=== PATIENT | male | born 1975 | race Caucasian/White ===

== ENCOUNTER 2019-03-15 07:04 | Outpatient (CLI) | payer SELFPAY ==
[2019-03-15 08:39] LABS: Anion Gap 7.2 mmol/L (3-11); BUN 11 mg/dL (7-18); CO2 27.8 mmol/L (21.0-32.0); CREATININE 0.94 mg/dL (0.70-1.30); Calcium 8.7 mg/dL (8.5-10.1); Chloride 106 mmol/L (98-107); Glucose 103 mg/dL (70-100); Potassium 4.7 mmol/L (3.5-5.1); Sodium 141 mmol/L (136-145)
== END 2019-03-15 07:24 ==
PROVIDERS: PCP Family Medicine; Visit Provider Family Medicine
DX: R73.01 Impaired fasting glucose (principal)
CPT/HCPCS: 36415; 80048; 83036

== ENCOUNTER 2021-01-27 17:26 | Outpatient (REF) | payer OTHER, SELFPAY ==
[2021-01-27 20:24] LABS: Hemoglobin A1C 5.9 % (<5.7)
[2021-01-29 10:33] LABS: Hepatitis C Ab w Rflx HCV PCR Negative (Negative)
[2021-01-29 10:42] LABS: HIV-1/2 Ag & Ab Screen Negative (Negative)
== END 2021-01-27 17:27 | disposition home or self-care (01) ==
LOC: NCHCN 17:26
PROVIDERS: PCP Family Medicine; Visit Provider Family Medicine
DX: R73.03 Prediabetes (principal); E66.9 Obesity, unspecified; Z00.00 Encounter for general adult medical examination without abnormal findings; Z72.0 Tobacco use; Z11.4 Encounter for screening for human immunodeficiency virus [HIV]; Z11.59 Encounter for screening for other viral diseases
CPT/HCPCS: 86803; 87389; 83036

== ENCOUNTER 2022-12-19 18:06 | Outpatient (REF) | payer OTHER, SELFPAY ==
[2022-12-19 18:39] LABS: Calculated LDL 105 mg/dL (<100); Cholesterol 198 mg/dL (<200); HDL Cholesterol 49 mg/dL (40-60); Triglyceride 223 mg/dL (<150)
== END 2022-12-19 18:07 | disposition home or self-care (01) ==
LOC: NCHCN 18:06
PROVIDERS: PCP Family Medicine; Visit Provider Family Medicine
DX: Z00.00 Encounter for general adult medical examination without abnormal findings (principal); R03.0 Elevated blood-pressure reading, without diagnosis of hypertension; Z13.220 Encounter for screening for lipoid disorders
CPT/HCPCS: 80061

== ENCOUNTER 2023-12-22 18:57 | Outpatient (REF) | payer OTHER, SELFPAY ==
--- OUTSIDE RECORDS SUMMARY | 2023-12-22 19:00 | XMS_ITS | Encounter Summary ---
[place] [address] Care Team Providers Care Cardiologist Name Role Phone Vira Hilton MD Primary Care Provider [phone] Encounter Details Date Type Department Care Team (Latest Contact Info) Description 06/22/2023 Travel Social History Tobacco Use Types Packs/Day Years Used Date Smoking Tobacco: Never Passive Smoke Exposure: Past Smokeless Tobacco: Former Comments:Chewing tobacco for the past 25-30 years. Chews on both sides Alcohol Use Standard Drinks/Week Comments Yes 4 (1 standard drink = 0.6 oz pur e alcohol) [facility] Inpatient Questions Answer Date Recorded Does Anyone Try to Keep You From Having Contact with Others or Doing Things Outside Your Home? no 04/10/2023 Feels Threatened by Someone no 03/31 Feels Unsafe at Home or Work/School no 04/10/2023 Physical Signs of Abuse Present no 04/10/2023 Sex and Gender Information Value Date Recorded Sex Assigned at Not on file Gender Identity Not on file Sexual Orientation Not on file documented as of this encounter Plan of Treatment Upcoming Encounters Date Type Department Care Team (Late st Contact Info) Description 03/07/2024 3:00 PM EST Office Visit [place] [phone] Nimesh Aquino MD [facility] [place] [address] documented as of this encounter Visit Diagnoses Not on filedocumented in this encounter Care Teams Cardiologist Relationship Specialty Start Date End Date Vira Hilton MD [address] [place] [address] PCP - General Family Medicine 01/10/23 documented as of this encounter
--- OUTSIDE RECORDS SUMMARY | 2023-12-22 19:00 | XMS_ITS | Encounter Summary ---
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 Vira Hilton MD [facility] [address] [facility] [address] [place] [address] [facility] [address] [place] [phone] Referral ID Status Reason Start Date Expiration Date Visits Requested Visits Authorized [id number] Authorized Consult, Test & Treat PCP Updated and/or Approved 03/02/2023 02/22/2024 6 6 Encounter Details Date Type Department Care Team (Latest Contact Info) Description 01/06/2023 Transcribe Orders eDH Incoming Referrals [phone] Dean Medrano DDS [address] [place] [address] 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) Social History Tobacco Use Types Packs/Day Years Used Date Smoking Tobacco: Never Assessed Sex and Gender Information Value Date Recorded Sex Assigned at Not on file Gender Identity Not on file Sexual Orientation Not on file documented as of this encounter Plan of Treatment Upcoming Encounters Date Type Department Care Team (Late st Contact Info) Description 03/07/2024 3:00 PM EST Office Visit [place] [address] Nimesh Aquino MD [facility] [place] [address] Scheduled Referrals Name Type Priority Associated Diagnoses Order Schedule Referral to Maxillofacial Surgery Outpatient Referral Routine 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
--- OUTSIDE RECORDS SUMMARY | 2023-12-22 19:00 | XMS_ITS | Encounter Summary ---
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 Vira Hilton MD [address] [place] [address] [address] [facility] [facility] [address] [place] [phone] Referral ID Status Reason Start Date Expiration Date Visits Requested Visits Authorized [id number] Authorized Consult, Test & Treat PCP Updated and/or Approved 03/02/2023 02/22/2024 6 6 Encounter Details Date Type Department Care Team (Late st Contact Info) Description 01/24/2023 9:30 AM EDT Office Visit [place] [address] Sg Fitzgerald PA [facility] [place] [address] Cyst of mandible Social History Tobacco Use Types Packs/Day Years Used Date Smoking Tobacco: Never Smokeless Tobacco: Former Tobacco Cessation:Counseling Given: Not Answered Comments:Chewing tobacco for the past 25-30 years. Chews on both sides Sex and Gender Information Value Date Recorded Sex Assigned at Not on file Gender Identity Not on file Sexual Orientation Not on file documented as of this encounter Last Filed Vital Signs Vital Sign Reading Time Taken Comments Blood Pressure - - Pulse - - Temperature - - Respiratory Rate - - Oxygen Saturation - - Inhaled Oxygen Concentration - - Weight 86.2 kg (190 lb) 01/24/2023 9:26 AM EDT Height 175.3 cm (5' 9) 01/24/2023 9:26 AM EDT Body Mass Index 28.06 01/24/2023 9:26 AM EDT documented in this encounter Progress Notes * Sg Fitzgerald PA - 01/24/2023 9:30 AM EDT Images from the original note were not included. ORAL-MAXILLOFACIAL SURGERY OUTPATIENT CLINIC INITIAL CONSULTATION VISIT Name: Alhaji Allen Age/Sex: 47 y.o. male History of Present Illness Alhaji Allen is a 47 y.o. male referred by Dean Medrano for consultation regarding right mandible radiolucency. A complete history of the Alhaji 's symptoms and physical signs were reviewed with attention to initial findings and progression, pain, bleeding, swelling, lumps, bumps, drainage, dysphagia, odynophagia, paresthesia, dysarthria and systemic effects. Pertinent notations from today's history: Denies oral pain, swelling or tingling Sees dentist regularly, noted on routine panorex Occasional cold sensitivity Unaware of any trauma on that side No daily medications or major past medical problems Prior knee surgery around 25 years ago without complications Accompanied by significant other Past Medical/Social/Dental History No past medical history on file. There is no problem list on file for this patient. Social History Tobacco Use Smoking status: Not on file Smokeless tobacco: Not on file Substance Use Topics Alcohol use: Not on file No current outpatient medications on file. Not on File Review of Systems Pertinent positive and negative findings discussed above. ROS with attention to cardiac, pulmonary,hepatic, renal, neurologic, lymphatic, gastroenterologic, constitutional, hematologic, and dermatologic systems reviewed with relevant findings as noted. Physical Exam Vitals: There were no vitals taken for this visit. There is no height or weight on file to calculate BMI. Extraoral exam conducted including facial symmetry, sensory and motor function, alertness and appropriateness to questions and commands, range of jaw motion, TMJ function and skeletal architecture. Neck exam conducted with attention to normal musculature, vasculature and potential adenopathy. Intraoral exam including evaluation of tongue surface and consistency, floor of mouth, buccal and labial mucosa as well as maxillary and mandibular vestibules, hard and soft palate including soft palate elevation and oropharynx as well as dentition, dental arches, occlusion and salivary flow. General: No acute distress, pleasant Focused oral exam: No trismus No oral lesions visualized No appreciable bony expansion No facial edema or erythema Neuro: a/o x3 Neck: soft, supple Psych: appropriate, responds to questions normally Imaging Panorex demonstrates sizable right mandible radiolucency emanating from deeply impacted #[address] as well. Septated lucency emanating from the cementoenamel junction of this tooth.Thinning of lingual cortex but buccal cortex appears appropriate and robust Personally reviewed and evaluated ASSESSMENT & RECOMMENDATIONS Assessment: right mandible radiolucency Differential includes dentigerous cyst, possibly odontogenic keratocyst, less likely ameloblastoma.Discussed that biopsy would aid in determining this and guide the most appropriate intervention. Ifkeratocyst may require cryotherapy and removal of #31 but if dentigerous cyst may be more amenable to excision. Ameloblastoma would be more involved. Discussed potential approaches and options for initial biopsy in office vs. OR. Recommendations/plan: -Plan for biopsy under local anesthesia -Amoxicillin course starting 2 days prior -Plan for probable surgical intervention and possible drain placement. Reviewed potential risks including fracture, nerve injury, bleeding, infection, chance for recurrence depending on underlying pathology. He does think he could adhere to a strict liquid diet perhaps in lieu of MMF. Reviewed imaging with Dr. Aquino. We appreciate the opportunity to be involved in Mr. Allen's care. EDDIE Paiz-C - Oral-Maxillofacial Surgery 01/20/2023 10:05 AM documented in this encounter Plan of Treatment Upcoming Encounters Date Type Department Care Team (Late st Contact Info) Description 03/07/2024 3:00 PM EST Office Visit [place] [address] Nimesh Aquino MD [facility] [place] [address] documented as of this encounter Visit Diagnoses Diagnosis Cyst of mandible Other cysts of jaws documented in this encounter Care Teams Bark Fitter Relationship Specialty Start Date End Date Vira Hilton MD [address] [facility] [address] [place] [address] PCP - General Family Medicine 01/10/23 documented as of this encounter
--- OUTSIDE RECORDS SUMMARY | 2023-12-22 19:00 | XMS_ITS | Encounter Summary ---
[place] [address] Care Team Providers Care Brass And Wind Instrument Repairer Name Role Phone Vira Hilton MD Primary Care Provider [phone] Encounter Details Date Type Department Care Team (Latest Contact Info) Description 01/17/2023 Travel Social History Tobacco Use Types Packs/Day [...] PM EST Office Visit [place] [address] Nimesh Aquino MD [facility] [place] [address] documented as of this encounter Visit Diagnoses Not on filedocumented in this encounter Care Teams Brass And Wind Instrument Repairer Relationship Specialty Start Date End Date Vira Hilton MD [address] [place], [place] [address] [place] [address] PCP - General Family Medicine 01/10/23 documented as of this encounter
--- OUTSIDE RECORDS SUMMARY | 2023-12-22 19:00 | XMS_ITS | Encounter Summary ---
Author Organization [facility] Address [address] [place] [address] Care Team Providers Care Tobacco Prevention Health Educator Name Role Phone Unavailable Primary Care Provider Unavailabl e Encounter Details Date Type Department Care Team (Late st Contact Info) Description 01/28/2021 Lab Requisition [facility] Pathology & Laboratory Medicine - [facility] [address] [id number] Outr Resulting Lab, Provider Social History Tobacco Use Types Packs/Day Years Used Date Smoking Tobacco: Never Assessed Sex and Gender Information Value Date Recorded Sex Assigned at Not on file Gender Identity Not on file Sexual Orientation Not on file documented as of this encounter Plan of Treatment Not on file documented as of this encounter Procedures Procedure Name Priority Date/Time Associated Diagnosis Comments HEPATITIS C AB W REFLEX TO HCV RNA BY PCR Routine 01/27/2021 17:02 EDT documented in this encounter Results * HEPATITIS C AB W REFLEX TO HCV RNA BY PCR (01/27/2021 17:02 EDT) Hep C Antibody Negative Negative 01/29/2021 10:28 EDT [facility] Blood VENOUS BLOOD / Unknown 01/27/2021 17:02 EDT 01/28/2021 16:13 EDT Provider Outr Resulting Lab CHEMISTRY & BLOOD GAS ORDERABLES [facility] [address] [place] [address] documented in this encounter Visit Diagnoses Not on filedocumented in this encounter
--- OUTSIDE RECORDS SUMMARY | 2023-12-22 19:00 | XMS_ITS | Referral Summary ---
Author Organization [facility] Address [address] [place] [address] Care Team Providers Care Slitting And Shipping Supervisor Name Role Phone Unavailable Primary Care Provider Unavailabl e Social History Tobacco Use Types Packs/Day Years Used Date Smoking Tobacco: Never Assessed Sex and Gender Information Value Date Recorded Sex Assigned at Not on file Gender Identity Not on file Sexual Orientation Not on file Plan of Treatment Not on file Procedures Procedure Name Priority Date/Time Associated Diagnosis Comments HEPATITIS C AB W REFLEX TO HCV RNA BY PCR Routine 01/27/2021 17:02 EDT from Last 3 Months or Most Recently Relevant to Health Maintenance Results * HEPATITIS C AB W REFLEX TO HCV RNA BY PCR (01/27/2021 17:02 EDT) Hep C Antibody Negative Negative 01/29/2021 10:28 EDT [facility] Blood VENOUS BLOOD / Unknown 01/27/2021 17:02 EDT 01/28/2021 16:13 EDT Provider Outr Resulting Lab CHEMISTRY & BLOOD GAS ORDERABLES [facility] [address] [place] [address] from Last 3 Months or Most Recently Relevant to Health Maintenance
--- OUTSIDE RECORDS SUMMARY | 2023-12-22 19:00 | XMS_ITS | Encounter Summary ---
[place] [address] Care Team Providers Care Directional Survey Drafter Name Role Phone Vira Hilton MD Primary Care Provider [phone] Encounter Details Date Type Department Care Team (Latest Contact Info) Description 05/11/2023 Travel Social History Tobacco Use Types Packs/Day Years Used Date Smoking Tobacco: Never Passive Smoke Exposure: Past Smokeless Tobacco: Former Comments:Chewing tobacco for the past 25-30 years. Chews on both sides Alcohol Use Standard Drinks/Week Comments Yes 4 (1 standard drink = 0.6 oz pur e alcohol) [facility] Inpatient Questions Answer Date Recorded Does Anyone [...] PM EST Office [place] [phone] Nimesh Aquino MD [facility] [place] [address] documented as of this encounter Visit Diagnoses Not on filedocumented in this encounter Care Teams Directional Survey Drafter Relationship Specialty Start Date End Date Vira Hilton MD [address] [place] [address] PCP - General Family Medicine 01/10/23 documented as of this encounter
--- OUTSIDE RECORDS SUMMARY | 2023-12-22 19:00 | XMS_ITS | Encounter Summary ---
[place] [address] Care Team Providers Care Supply Tech Name Role Phone Vira Hilton MD Primary Care Provider [phone] Encounter Details Date Type Department Care Team (Latest Contact Info) Description 01/24/2023 Travel Social History Tobacco Use Types Packs/Day Years Used Date Smoking Tobacco: Never Smokeless Tobacco: Former Comments:Chewing tobacco for the [...] PM EST Office Visit [place] [address] Nimesh Aquino MD [facility] [place] [address] documented as of this encounter Visit Diagnoses Not on filedocumented in this encounter Care Teams Supply Tech Relationship Specialty Start Date End Date Vira Hilton MD [employer] [address] [place] [address] PCP - General Family Medicine 01/10/23 documented as of this encounter
--- OUTSIDE RECORDS SUMMARY | 2023-12-22 19:00 | XMS_ITS | Encounter Summary ---
[place] [address] Care Team Providers Care Country Director Name Role Phone Vira Hilton MD Primary Care Provider [phone] Encounter Details Date Type Department Care Team (Late st Contact Info) Description 04/28/2023 Telephone [place] [address] Nova Hunter RN Social History Tobacco Use Types Packs/Day Years Used Date Smoking Tobacco: Never Passive Smoke Exposure: Past Smokeless Tobacco: Former Comments:Chewing tobacco for the past 25-30 years. Chews on both sides Alcohol Use Standard Drinks/Week Comments Yes 4 (1 standard drink = 0.6 oz pur e alcohol) [facility] Inpatient Questions Answer Date Recorded Does [...] on file documented as of this encounter Miscellaneous Notes * Telephone Encounter - Nova Hunter RN - 04/28/2023 4:28 PM EST HIRA left on nurse triage line by patient stating he has a funny taste coming from the area. Dr. Aquino performed surgery on 04/10 for a right mandibular cyst. Attempt to call patient back to gather more details. VM left on identified machine. Call back number left or oral surgery clinic, as wellas provider telemetry monitor. documented in this encounter Plan of Treatment Upcoming Encounters Date Type Department Care Team (Late st Contact Info) Description 03/07/2024 3:00 PM EST Office Visit [place] [address] Nimesh Aquino MD [facility] [place] [address] documented as of this encounter Visit Diagnoses Not on filedocumented in this encounter Care Teams Country Director Relationship Specialty Start Date End Date Vira Hilton MD [address] [place] [address] PCP - General Family Medicine 01/10/23 documented as of this encounter
--- OUTSIDE RECORDS SUMMARY | 2023-12-22 19:00 | XMS_ITS | Continuity of Care Document ---
Author Organization [facility] Address [address] [place] [address] Assessment No assessment recorded. Plan of Treatment Reminders Order Date Submit Date Provider Last Modified By Organization Details Last Modified Time Details Appointments Annual Wellness Exam 40 2023 03:00P M Not available Not available Not available Nurse Visit 20 2023 08:30A M Not available Not available Not available Annual Wellness Exam 30 2024 08:20A M Not available Not available Not available Lab CMP, serum or plasma 2023 024 [facility] (Registration ), [address] [place] [address] , [place], [address], 12/22/2023 16:17:34 HbA1c (hemoglob in A1c), blood 2023 024 [facility] (Registration ), [address] [place] [address] [place], [address], 12/22/2023 16:17:34 fecal occult blood, immunoass ay, stool 2023 024 [facility], [address], [place], [address], 12/22/2023 16:03:13 Referral None recorded. Procedures colonosco py screening (PROC) - He says that he called to schedule, and was told he would get a call back but never did... 2023 024 [facility], [address] [facility] , [address], [place], [address], 12/22/2023 16:10:35 Surgeries None recorded. Imaging None recorded. Medication Orders None recorded. Patient TargetsNo targets recorded. Patient Instructions Encounter Date Encounter Id Patient Instructions Last Modified By Organization Details Last Modified Time 12/22/2023 [id number] exercise [email or web address] Not available 12/21 15:58:29 Reason for Referral None Reported. Problems Name Status Onset Date Resolution Date Notes Provider Name and Address Organization Details Recorded Time Adult health examination Active [address], [place], [address] , [facility] 16:34:12 Fatigue Completed 201610/12/2016 Problem Code: R53.83; Problem Code Type: ICD-10; Not Available [facility] 3 05:57:41 Irritability and anger Active [address], [place], [address] , [facility] 4 16:34:21 Prediabetes Active [address], [place], [address] , [facility] 4 16:34:28 Allergic contact dermatitis Completed 202010/20/2020 10/19/2020 - Comments only - Kari MORGAN - - rx for pred 40mg for 5 days- discussed side effects such as increased thirst, urination, insomnia, mood changes- start this tomorrow morning - rx for TAC 0.1% BID until it clears 1-2 weeks - cont claritin in the morning and can take benadryl at bedtime for the itching - Return to clinic if not improving or worsening symptoms Problem Code: L23.9; Problem Code Type: ICD-10; Not Available [facility] 3 05:57:41 Tobacco user Completed 202012/22/[address], [place], [address] , [facility] 4 15:20:16 Hyperlipidemia screening Completed 202201/02/2023 Problem Code: Z13.220; Problem Code Type: ICD-10; Not Available [facility] 3 05:57:41 Screening for malignant neoplasm of colon Completed 202212/21/2023 Problem Code: Z12.11; Problem Code Type: ICD-10; MD [address], [place], [address] , [facility] 16:34:34 Elevated blood-pressure reading without diagnosis of hypertension Completed 202012/19/2022 Problem Code: R03.0; Problem Code Type: ICD-10; Not Available [facility] 3 05:57:42 Obesity Completed 201812/19/2022 Problem Code: E66.9; Problem Code Type: ICD-10; MD K[address], [facility] [address] , [facility] 4 15:11:45 Major depression, single episode Completed 201601/23/2019 Problem Code: F32.9; Problem Code Type: ICD-10; Not Available [facility] 3 05:57:42 Impaired fasting glycemia Completed 201601/25/2023 01/23/2019 - Comments only - Vira Ontiveros MD - One elevated blood sugar in 2017. Will do fasting glucose/A1C. Discussed HgA1c is a test that measures sugar levels over the last 3 months. Discussed: Normal fasting blood sugar is under 100, over 125 is considered diabetes. So you are in the PRE-DIABETES range (fasting blood sugar 100-125). Losing weight and exercising for 30 minutes 5 days each week has clearly been shown to lower the risk of moving from pre-diabetes to diabetes. There is a great program in our community called PREVENT T2. It is a year long program that teaches you to make small changes that cut your risk of type 2 diabetes by more than half. For more information contact LIV MARES at [phone] Problem Code: R73.01; Problem Code Type: ICD-10; Not Available [facility] 3 05:57:42 Obesity Active [address], [place], [address] , [facility] 4 15:11:45 Problem Notes None recorded. Procedures Surgical History Date Name Laterality Status Provider Name and Address Organization Details Recorded Time 3 excision of lesion of jaw bone completed MD Krystle [address], [place], [address], [facility] 04/11/2023 20:07:00 Imaging Results None recorded. Procedure Notes None recorded. Medical Equipment None Reported. Allergies No known drug allergies Medications Name Sig Start Date Stop Date Status Note LastModified by Organization Details LastModified Time hydrocodone 5 mg-acetamin ophen 325 mg tablet Take 1 tablet every 6 hours by oral route. 12/21 completed 1-2 tabs Not Available Not Available Not Available prednisone 20 mg tablet Take 2 tablet by mouth once a day for 5 days. take in the morning 10/24 completed Not Available Not Available Not Available Peridex 0.12 % mouthwash Place 15 mL twice a day by mucous membrane route for 7 days. 12/21 completed Not Available Not Available Not Available penicillin V potassium 500 mg tablet 1 BID 04/18 completed Not Available Not Available Not Available triamcinolo ne acetonide 0.1 % topical cream Apply 1 a small amount to affected area twice a day 01/27 completed Not Available Not Available Not Available Zoloft 50 mg tablet 1 tab daily 01/26 completed Not Available Not Available Not Available ibuprofen 600 mg tablet prn active Not Available Not Available Not Available amoxicillin 875 mg-potassiu m clavulanate 125 mg tablet Take 1 tablet twice a day by oral route. 12/21 completed Not Available Not Available Not Available Augmentin 875 mg tablet 1 bid 05/07 completed Not Available Not Available Not Available azelaic acid 15 % topical gel Apply as directed to skin twice a day 04/07 completed Not Available Not Available Not Available Tylenol-Cod eine #3 1 q hs 09/28 completed Not Available Not Available Not Available Chantix Continuing Month Box 1 mg tablet Take 1 tablet by mouth twice a day 01/27 completed Not Available Not Available Not Available Chantix Starting Month Box 0.5 mg (11)-1 mg (42) tablets in dose pack Take 1 tablet by mouth twice a day as per starter pack 12/19 completed Not Available Not Available Not Available Vitals Date Recorded Body height Body mass index (BMI) Body weight Body temperature Oxygen saturation Oxygen saturation in Arterial blood by Pulse oximetry Respiratory rate Heart rate Systolic blood pressure Diastolic blood pressure Provider Name and Address Organization Details Last Updated DateTime 172.72 cm 30.3 kg/m2 09921.8 8 g 97.7 [degF] 97 % 97 % 16 /min 70 /min 110 mm[Hg] 80 mm[Hg] JASKARAN CHAVES LPN [facility] 14:59:01 Social History Question Answer Notes LastModified by Organizat ion Details LastModified Time Tobacco Smoking Status Never Smoker VIRA ONTIVEROS MD [facility] [address], [place], [address], [facility] 12/22/2023 15:22:16 Do You Have An Advance Directive? No Paperwork Given Today Information not available 12/22/2023 Do You Or Have You Ever Used E-cigarettes Or Vape? Never Used Electronic Cigarettes Information not available 12/22/2023 Would You Say That, In General, Your Health Is Very Good Information not available 12/22/2023 How Often Does Anyone, Including Family, Physically Hurt You? Never Information not available 12/22/2023 How Often Does Anyone, Including Family, Insult Or Talk Down To You? Never Information not available 12/22/2023 How Often Does Anyone, Including Family, Threaten You With Harm? Never Information not available 12/22/2023 How Often Does Anyone, Including Family, Scream Or Curse At You? Never Information not available 12/22/2023 Within The Past 12 Months, You Worried That Your Food Would Run Out Before You Got Money To Buy More. Never True Information not available 12/22/2023 Within The Past 12 Months, The Food You Bought Just Didn't Last And You Didn't Have Money To Get More. Never True Information not available 12/22/2023 How Hard Is It For You To Pay For The Very Basics Like Food, Housing, Medical Care, And Heating? Would You Say It Is: Not Hard At All Information not available 12/22/2023 In The Past 12 Months, Has Lack Of Reliable Transportation Kept You From Medical Appointments, Meetings, Work Or From Getting Things Needed For Daily Living? No Information not available 12/22/2023 What Is Your Housing Situation Today? I Have Housing. Information not available 12/22/2023 How Often In The Past Year Have You Used Marijuana (including Smoking, Vaping, Dabbing, Or Edibles)? Never Information not available 12/22/2023 How Often In The Past Year Have You Used Prescription Medications That Were Not Prescribed To You? Never Information not available 12/22/2023 How Often In The Past Year Have You Taken Your Own Prescription Medication More Than The Way It Was Prescribed Or For Different Reasons Than Its Intended Purpose? Never Information not available 12/22/2023 How Often In The Past Year Have You Used Other Drugs (for Example, Heroin, Cocaine, Meth, Salvia, Inhalants)? Never Information not available 12/22/2023 Have You Ever Used IV Drugs? No Information not available 12/22/2023 Date Of Most Recent SBINS 12/22/2023 Information not available 12/22/2023 What Was The Date Of Your Most Recent Tobacco Screening? 12/22/2023 Information not available 12/22/2023 Do You Or Have You Ever Used Smokeless Tobacco? Former Smokeless Tobacco User Information not available 12/22/2023 Has Tobacco Cessation Counseling Been Provided? Yes Information not available 12/22/2023 On What Date Was Tobacco Cessation Counseling Provided? 12/22/2023 Information not available 12/22/2023 Do You Or Have You Ever Used Any Other Forms Of Tobacco Or Nicotine? Yes Information not available 12/22/2023 Sex: Male Functional Status None recorded. Mental Status None recorded. Family History Relationship Description Onset Age of this Age Resolved Age Notes Mother Family history of Depression Notes:*Problem: Mother alive - Healthy Father alive- Healthy Medical History No medical history recorded. Immunizations Vaccine Type Date Status Provider Name and Address Organization Details Recorded Time zoster recombinant 12/22/2023 completed MANUEL SANTIAGO [place] - [facility] 12/22/2023 16:05:10 Tdap 01/22/2018 completed Not Available [facility] 06:07:07 Influenza, split virus, quadrivalent, PF 01/23/2019 completed Not Available [facility] 03/10/2023 06:07:07 Influenza, split virus, quadrivalent, PF 01/27/2020 completed Not Available [facility] 03/10/2023 06:07:07 Influenza, split virus, quadrivalent, PF 01/27/2021 completed Not Available [facility] 03/10/2023 06:07:07 Influenza, split virus, quadrivalent, preservative 01/20/2017 completed Not Available [facility] 03/10/2023 06:07:07 influenza, unspecified formulation 02/20/2016 completed Not Available [facility] 03/10/2023 06:07:07 Past Encounters Encounter ID Performer Location Encounter Start Date Encounter Closed Date Diagnosis/Indication Diagnosis SNOMED-CT Code [id number] JASKARAN CHAVES LPN [address] [place] [address] 12/22/2023 14:49:42 12/22/2023 15:44:09 Active or passive immunization 614030484 Screening for malignant neoplasm of colon 242813614 Adult heal th examination 203731042 Prediabetes 576898499 Obesity 116270406 Health Concerns Section Related Observation LastModified by Organization Detai ls LastModified Time None Recorded Concern Status LastModified by Organization Details LastModified Time None Recorded Payers Encounter Date Sequence Insurance Name Policy Number Policy Beltre Covered Member ID Beltre Member ID Guarantor Name 12/22/2023 1 [facility] Alhaji Lauren Allen [id number] Alhaji Allen Notes Date Note Type Note Provider Name and Address Organization Details Recorded Time 12/22/2023 text/html HPI Notes: Here for Annual Exam. Interval history form was reviewed, including comprehensive ROS form. ROS negative throughout with the exception as noted below: prediabetes Ex tobacco chewer, none for 2 years, still uses candies. irritability- not a problem, mood is good. Obesity- gained a few pounds, BMI now just over 30. Attributes weight gain to vacation rather than being busy with side projects. Drinks milk one glass per night, rarely soda or juice or sweetened beverages. Does not snack after dinner. He does like sweets. JASKARAN CHAVES LPN null, [place] - [facility]. 12/22/2023 16:03:29
--- OUTSIDE RECORDS SUMMARY | 2023-12-22 19:00 | XMS_ITS | Encounter Summary ---
Author Organization [facility] [address] Care Team Providers Care Nursery Helper Name Role Phone Vira Hilton MD Primary Care Provider Reason for Visit * Consultation (Urgent) - Authorized Specialty Diagnoses / Procedures Referred By Bao simpson Referred To Contact Maxillofacial Surgery Diagnoses Radiolucent 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 Vira Hilton MD [address] [place] [address] [address] [facility] Maxillo Surg [address] [place] [phone] Referral ID Status Reason Start Date Expiration Date Visits Requested Visits Authorized [id number] Authorized Consult, Test & Treat PCP Updated and/or Approved 03/02/2023 02/22/2024 6 6 Encounter Details Date Type Department Care Team (Late st Contact Info) Description 05/11/2023 9:00 AM EST Office Visit [place] [address] Nimesh Aquino MD [facility] [place] [address] Status post surgery Social History Tobacco Use Types Packs/Day Years Used Date Smoking Tobacco: Never Passive Smoke Exposure: Past Smokeless Tobacco: Former Comments:Chewing tobacco for the past 25-30 years. Chews on both sides Alcohol Use Standard Drinks/Week Comments Yes 4 (1 standard drink = 0.6 oz pur e alcohol) [facility] IPV Inpatient Questions Answer Date Recorded Does Anyone [...] on file documented as of this encounter Progress Notes * Nimesh Aquino MD - 05/11/2023 9:00 AM EST Images from the original note were not included. ORAL-MAXILLOFACIAL SURGERY OUTPATIENT CLINIC FOLLOW-UP VISIT Name: Alhaji Allen Age/Sex: 47 y.o. male History of Present Illness Alhaji Allen is a 47 y.o. male seen for follow-up s/p excision of right mandibular cyst DOS was 04/10/[address] Aquino A complete history of the Alhaji 's symptoms and physical signs were reviewed with attention to initial findings and interval progression, pain, bleeding, swelling, lumps, bumps, drainage, dysphagia, odynophagia, paresthesia, dysarthria and systemic effects. Pertinent interval history: Placed on antibiotic 04/28/23- see last telephone note Completed antibiotic Daily mouthwash rinsing Denies pain or numbness Bite feels stable Past Medical/Social/Dental History No past medical history on file. There is no problem list on file for this patient. Social History Tobacco Use Smoking status: Never Passive exposure: Past Smokeless tobacco: Former Tobacco comments: Chewing tobacco for the past 25-30 years. Chews on both sides Substance Use Topics Alcohol use: Yes Alcohol/week: 4.0 standard drinks of alcohol Types: 2 Cans of beer, 2 Shots of liquor per week amoxicillin-clavulanate (Augmentin) 875-125 mg tablet HYDROcodone-acetaminophen ([place]) 5-325 mg tablet ibuprofen (Advil) 600 mg tablet amoxicillin-clavulanate (Augmentin) 875-125 mg tablet ibuprofen (Advil) 600 mg tablet HYDROcodone-acetaminophen ([place]) 5-325 mg tablet No Known Allergies Review of Systems Pertinent positive and negative findings discussed above. ROS with attention to cardiac, pulmonary,hepatic, renal, neurologic and dermatologic systems reviewed with relevant findings [...] exam: No trismus No oral lesions visualized Mucosa pink 5mm hole distal to #18 that was irrigated with scant amount of food debris No sign of fracture with binmanual manipulation Occlusion stable Neuro: a/o x3 Neck: soft, supple Psych: appropriate, responds to questions normally Imaging New panorex taken today No fracture Personally reviewed and evaluated ASSESSMENT & RECOMMENDATIONS Assessment: 3 weeks s.p escision of dentigerious cyst Recommendations/plan: -continue observation -irrigate opening with monojet and monitor for granulation -follow up 6 weeks for panorex -continue minimal chew diet and reviewed risk of jaw fracture We appreciate the opportunity to be involved in Mr. Allen's care. Nimesh Aquino MD, DMD 05/02/2023 1:54 PM documented in this encounter Plan of Treatment Upcoming Encounters Date Type Department Care Team (Late st Contact Info) Description 03/07/2024 3:00 PM EST Office Visit [place] [address] Nimesh Aquino MD [facility] [place] [address] documented as of this encounter Visit Diagnoses Diagnosis Status post surgery documented in this encounter Care Teams Nursery Helper Relationship Specialty Start Date End Date Vira Hilton MD [address] [place] [address] PCP - General Family Medicine 01/10/23 documented as of this encounter
--- OUTSIDE RECORDS SUMMARY | 2023-12-22 19:00 | XMS_ITS | Encounter Summary ---
[place] [address] Care Team Providers Care Camp Tender Name Role Phone Vira Hilton MD Primary Care Provider [phone] Encounter Details Date Type Department Care Team (Late st Contact Info) Description 03/14/2023 Telephone [place] [address] Ginny Samuels RN Social History Tobacco Use Types Packs/Day Years Used Date Smoking Tobacco: Never Smokeless Tobacco: Former Comments:Chewing tobacco for the past 25-30 years. Chews on both sides Sex and Gender Information Value Date Recorded Sex Assigned at Not on file Gender Identity Not on file Sexual Orientation Not on file documented as of this encounter Miscellaneous Notes * Telephone Encounter - Ginny Samuels RN - 03/16/2023 8:54 AM EST Spoke to patient and was able to review pathology results per my previous note. Patient verbalized understanding and has already been scheduled for surgery. * Telephone Encounter - Ginny Samuels RN - 03/14/2023 4:56 PM EST Tried to call patient to review pathology results. Message left asking patient to call back to discuss. Per Dr. Aquino the biopsy came back as a dentigerious cyst and nothing aggressive like a keratocyst. Given fracture risk, Dr. Aquino will most likely leave the deeply impacted tooth in place. Patient also needs to contact surgical scheduling to schedule surgical date. documented in this encounter Plan of Treatment Upcoming Encounters Date Type Department Care Team (Late st Contact Info) Description 03/07/2024 3:00 PM EST Office Visit [place] [address] Nimesh Aquino MD [facility] [address] [place] [address] documented as of this encounter Visit Diagnoses Not on filedocumented in this encounter Care Teams Camp Tender Relationship Specialty Start Date End Date Vira Hilton MD [facility] [address] [facility] [address] [place] [address] PCP - General Family Medicine 01/10/23 documented as of this encounter
--- OUTSIDE RECORDS SUMMARY | 2023-12-22 19:00 | XMS_ITS | Encounter Summary ---
[place] [address] Care Team Providers Care Development Specialist Name Role Phone Vira Hilton MD Primary Care Provider [phone] Encounter Details Date Type Department Care Team (Late st Contact Info) Description 04/29/2023 Telephone [place] [address] Varinder Toure MD [facility] [place] [address] Social History Tobacco Use Types Packs/Day Years Used Date Smoking Tobacco: Never Passive Smoke Exposure: Past Smokeless Tobacco: Former Comments:Chewing tobacco for the past 25-30 years. Chews on both sides Alcohol Use Standard Drinks/Week Comments Yes 4 (1 standard drink = 0.6 oz pur e alcohol) [facility] Inpatient Questions Answer Date Recorded Does Anyone [...] encounter Miscellaneous Notes * Telephone Encounter - Varinder Toure MD - 04/29/2023 8:22 AM EST Called by Mr. Allen regarding his recent surgery. The patient had a mandibular cyst removed with Dr. Aquino on 04/10. He reports things have largely been going well since then, though over the last couple of days he has developed a foul taste in his mouth coming from the surgical site. He has also noted some mild swelling at this area as well. Mild tenderness. At the site. He denies fevers or chills. We dicussed that his symptoms may represent early signs of developing infection, and I recommended we cover his with augmentin. He was agreeable to this plan. He has follow up scheduled on 05/[address] Aquino. Varinder Toure MD ENT PGY-2 Personal Pager #[phone] ENT Team Pager #[phone] documented in this encounter Plan of Treatment Upcoming Encounters Date Type Department Care Team (Late st Contact Info) Description 03/07/2024 3:00 PM EST Office Visit [place] [address] Nimesh Aquino MD [facility] [place] [address] documented as of this encounter Visit Diagnoses Not on filedocumented in this encounter Care Teams Development Specialist Relationship Specialty Start Date End Date Vira Hilton MD [facility] [address] [place] [address] PCP - General Family Medicine 01/10/23 documented as of this encounter
--- OUTSIDE RECORDS SUMMARY | 2023-12-22 19:00 | XMS_ITS | Encounter Summary ---
[place] [address] Care Team Providers Care Oven Operator Automatic Name Role Phone Vira Hilton MD Primary Care Provider [phone] Reason for Visit * Auth/Cert (Routine) Specialty Diagnoses / Procedures Referred By Contac t Referred To Contact Diagnoses Unspecified cyst of jaw right mandibular cyst Procedures PRO EXCISION, BENIGN TUMOR, MANDIBLE EXCISION BENIGN TUMOR OR CYST, MANDIBLE (WRVU 4.91) Nimesh Aquino MD [facility] [place] [address] [facility] Referral ID Status Reason Start Date Expiration Date Visits Re quested Visits Authorized [id number] 1 1 Encounter Details Date Type Department Care Team (Late st Contact Info) Description 04/10/2023 1:30 PM EST - 04/10/2023 2:45 PM EST Surgery [place] [id number] Nimesh Aquino MD [facility] [place] [address] EXCISION BENIGN TUMOR OR CYST, MANDIBLE (WRVU 4.91) Social History Tobacco Use Types Packs/Day Years [...] Sign Reading Time Taken Comments Blood Pressure 125/87 04/10/2023 1:34 PM EST Pulse 50 04/10/2023 1:34 PM EST Temperature 36.3 ??C (97.3 ??F) 04/10/2023 1:34 PM ES T Respiratory Rate 16 04/10/2023 1:34 PM EST Oxygen Saturation 98% 04/10/2023 1:34 PM EST Inhaled Oxygen Concentration - - Weight 86.2 kg (190 lb) 04/10/2023 1:34 PM EST Height 175.3 cm (5' 9) 04/10/2023 1:34 PM EST Body Mass Index 28.06 04/10/2023 1:34 PM EST documented in this encounter Discharge Instructions * Discharge Instructions* Molly Griffin RN - 04/10/2023 4:59 PM EST General Anesthesia Discharge Instructions Go home and rest. You may be sleepy for several hours. Take it easy as sudden position changes may cause nausea and/or dizziness. Use caution on stairs. Do not smoke if you are alone. Follow a light to regular diet as tolerated today. If nausea occurs, start with clear liquids, and progress slowly to a regular diet. Do not drive, operate machinery, drink alcoholic beverages or make any legal decisions after havinggeneral anesthesia. The medications given change your reaction time and alter your judgement. IV site -- slight redness is normal, you can use warm compresses. If tenderness and redness increases or foul drainage occurs, please contact your M.D. Patients who have had endotracheal tubes/LMA (tubes used by the anesthesia staff to ensure a safe airway during your operation) may have a sore throat. This is normal and cold liquids or soothing lozenges will help ease this discomfort. Narcotic pain medications can cause constipation, please ask the surgeons office what they recommend for prevention of this. Some non-pharmaceutical means of constipation prevention include increasing intake of fluids, eating more fruits and vegetables as well as fruit juices. If you are uncomfortable and/or unable to urinate within 8 hours of discharge and it is before 5 pm, call your physician. If it is after 5pm go to the closest emergency room or call the hospital offset press operator helper at [phone] and ask for physician construction supervisor/carpenter covering for your physician. Questions or problems after 5pm or on a weekend: Call the [facility] offset press operator helper at and ask for the physician construction supervisor/carpenter covering for your doctor. At 2 pm you received 975 mg of acetaminophen- Your next dose should not be taken before 8 hours have passed or as advised by your provider. Next dose not before- 10 pm. You should not take more than a total of 3000 mg of acetaminophen in a 24 hour period. * Patient Instructions* Nimesh Aquino MD - 04/10/2023 4:42 PM EST Strict soft diet x 3 weeks - minimal chew diet. Due to risk of jaw fracture. On the Day of Surgery: DO NOT rinse your mouth, smoke, or use a straw when drinking. Any of these could cause you to bleed more. You should remain at home, rest, and avoid alcoholic beverages. Discomfort: Strategy for pain: Take prescribed motrin/advil/ibuprofen (these are called NSAID) every 6 hours for pain over the next 2 days on a regular time frame. In between the 6 hour time frame you can supplement it with Tylenol 650mg and/or one vicodin/percocet/oxycodone (which ever one was prescribed) to bridge your pain till the next NSAID dose. Time the pain medicine so you take it before you go to bed. Be mindful of not taking more then 1000mg within a 6 hour time frame (not to exceed 4000mg in a 24 hour period). It is not uncommon for you to have some discomfort following a surgical procedure. This discomfort may last for three days or more. Pain relievers such as ibuprofen or Tylenol (acetaminophen) may be taken - please follow the directions on the bottle. Other discomforts you may experience include: slight earache, sore throat, numbness or tingling in the lips or chin, aches in other teeth, and tightness of the jaw muscles. Bleeding: It is normal for the surgery site to bleed post-operatively. If bleeding continues, placegauze directly over the surgery site and bite down gently, but firmly, for 20 minutes. Repeat this process as needed. If bleeding is heavy, keep head elevated or sit upright, avoid exercise, hot liquids, smoking, and drinking from straws. If the bleeding does not stop with pressure, try a lukewarm,damp tea bag in place of the gauze for another 20 minutes. The tea bag will help to form blood clots and stop the bleeding. If bleeding continues, call your doctor. Swelling: To reduce immediate swelling after your procedure, apply an ice pack, with pressure, to the face over the area of the procedure. Ice should be applied for 15-20 minutes at a time, for the first 24 hours. After 24 hours, a moist warm compress may be helpful. Most swelling will occur [id number] hours following the procedure. Mouth Rinse: Vigorous mouth washing may cause bleeding to begin again if clots are not formed. DO NOT RINSE on the day of surgery. Begin rinsing one day after the procedure with peridex (if prescribed) very gently and in between peridex rinses you can also rinse with warm salt water (1/2 teaspoon per 8 oz. warm water). Continue rinsing 3-6 times a day for several days. This will keep surgical sites clean and will help with healing. In General: If stitches are used, they will dissolve or unravel in about three days to one week. Avoid strenuous exercise, such as jogging and contact sports for at least one week following surgery. Swelling is usually most extensive 24- 48 hours following surgery, and usually takes 4-5 days to subside. Sockets can take 4-6 weeks to heal, and often heal from the inside out. It may take 10-14 days before you feel like your normal self again. Infection: Can occur at any time, but it is evident more often 4-7 days after a procedure. Please contact us at the numbers below if you have one or more of the following: Temperature elevation greater than 100.5 Worsening swelling after the initial 48 hour period Severe and worsening pain Pus or other foul drainage from the surgery site Foul smell or taste coming from the surgery site Generalized body chills or fever During business hours 8am-5pm M-F please call our office at [phone] otherwise call the main number [phone] and ask to connect with Dr. Aquino and if no response within 30 minutes please call and ask to speak with the ENT resident construction supervisor/carpenter. documented in this encounter Medications at Time of Discharge Medication Sig Dispensed Refills Start Date End Date chlorhexidine (Peridex) 0.12 % Mouthwash Take 15 mLs by mouth 2 times daily for 7 days. 210 mL 04/10/2023 04/17/2023 chlorhexidine (Peridex) 0.12 % Mouthwash Take 15 mLs by mouth 2 times daily for 7 days. 210 mL 04/10/2023 04/17/2023 HYDROcodone-acetaminoph en ([place]) 5-325 mg tablet Take 1-2 tablets by mouth every 6 hours as needed. 12 tablet 04/10/2023 08/29/2023 ibuprofen (Advil) 600 mg tablet Take 1 tablet by mouth every 6 hours as needed for Pain. 20 tablet 04/10/2023 08/29/2023 amoxicillin-clavulanate (Augmentin) 875-125 mg tablet Take 1 tablet by mouth 2 times daily. 20 tablet 04/10/2023 04/29/2023 amoxicillin-clavulanate (Augmentin) 875-125 mg tablet Take 1 tablet by mouth 2 times daily. 20 tablet 04/10/2023 06/15/2023 ibuprofen (Advil) 600 mg tablet Take 1 tablet by mouth every 6 hours as needed for Pain. 20 tablet 04/10/2023 08/29/2023 HYDROcodone-acetaminoph en ([place]) 5-325 mg tablet Take 1-2 tablets by mouth every 6 hours as needed. 12 tablet 04/10/2023 08/29/2023 documented as of this encounter Progress Notes * Marialuisa Landon RN - 04/10/2023 6:49 PM EST Discharge instructions and medications reviewed with patient and Alexandru. All questions answered and written copy sent home with patient. Patient ambulated to car for discharge accompanied by [facility] staff member. documented in this encounter H&P Notes * Nimesh Aquino MD - 04/10/2023 3:45 PM EST The patient's history and physical exam have been reviewed and completed. There has been no interval change. CV: regular rate and rhythm without peripheral edema Lungs:non labored breathing Oral exam: no change in exam. Plan is to excision of right mandibular cyst possible removal of #32, remote need to provide intermaxillary fixation. I discussed need to decompress cyst if unable to completely remove (ie leave exposed). Also reviewed NETTA injury potential. Dparq/consent obtained. Risks reviewed and see consent for details. Nimesh Aquino MD, DMD documented in this encounter Miscellaneous Notes * Op Note - Nimesh Aquino MD - 04/10/2023 4:11 PM EST [facility] Operative Note Patient Name: Alhaji Allen : [id number] MR#: [id number] Case Date: 04/10/2023 Surgeon: Surgeon(s) and Role: * Nimesh Aquino MD - Primary Preoperative diagnosis: right mandibular cyst Postoperative diagnosis: right mandibular cyst Procedure(s) (LRB): EXCISION BENIGN TUMOR OR CYST, MANDIBLE (WRVU 4.91) (Right) Anesthesia: General Estimated Blood Loss: Specimens removed during surgery: Order Name Source Comment Collection Info Order Time SPECIMEN TO PATHOLOGY right mandibular cyst right mandibular cyst excision No 04/10/2023 4:26 PM Time specimen removed from patient: 4:24 PM Number of tissue samples (in container) 1 Drains: * No LDAs found * Surgical Closure: Primary Closure - skin incision is completely closed without any wires, jaron, drains or other devices Disposition: awakened from anesthesia, extubated and taken to the recovery room in a stable condition, having suffered no apparent untoward event. Condition: doing well without problems (Please see the Surgical Encounter Summary for any Implant and Specimen details pertinent to this patient.) HPI/Surgical Indications: See previous preop History and Physical for full details. Procedure Description: Patient identified in preoperative holding area history and physical reviewed and he was cleared byanesthesia to undergo the procedure. He was induced and general anesthesia and intubated using nasal ETT. His oropharynx was suctioned and attention was turned to the right mandible. A sulcular incision was made between #30 and 31 and carried distally in the lingual nerve sparing fashion of the ascending ramus for a third molar type incision extending the ramus. The initial osteotomy for the cystbiopsy was visualized. Using a egg bur this hole was made approximately 1 cm to gain access to the entire cyst. Using a series of curettes and spoons the cyst was then relieved from the surrounding bony cavity and using a hemostat the cyst was removed in its entirety in 1 piece. The third molar wascompletely ankylosed and no mobility. Attention was turned to not curette near the path of the mandibular nerve which was on the buccal and inferior border region. Gentle curette of the surrounding bony cavity was performed with a curettes and then platelet rich fibrin along with Gelfoam was placedinto the socket and primary closure was obtained. This was done using 3-0 chromic suture. She been on platelet rich fibrin was drawn from the patient's right wrist and centrifuged protocol. All needle count sponge construct and throat pack Was placed at the beginning of the procedure was removed. No mandibular nerve or brisk bleeding was appreciated and no evidence of fracture was appreciated. 8 cc of 2% lidocaine with 1 100,000 epinephrine injected for right mandibular block at the beginning of the surgery and at the surgery 8 cc of 0.5% Marcaine without epinephrine was given for infiltration and right mandibular block as well. Surgical Infection Prevention Bundle Used? N/A Attestation: Case Date: 04/10/2023 I performed this procedure without the involvement of a resident. Nimesh Aquino MD 04/10/2023 documented in this encounter Plan of Treatment Upcoming Encounters Date Type Department Care Team (Late st Contact Info) Description 03/07/2024 3:00 PM EST Office [place] [address] Nimesh Aquino MD [facility] DR ORAL SURGERY [place] [phone] documented as of this encounter Procedures Procedure Name Priority Date/Time Associated Diagnosis Comments SURGICAL PATHOLOGY REPORT Routine 04/10/2023 4:26 PM EST SPECIMEN TO PATHOLOGY Routine 04/10/2023 4:26 PM EST Excision, Benign Tumor, Mandible ([id number]) Yes 04/10/2023 3:53 PM EST Cyst of mandible EXCISION BENIGN TUMOR OR CYST,MANDIBLE Routine 04/10/2023 1:34 PM EST Cyst of mandible documented in this encounter Results * Surgical Pathology Report (04/10/2023 4:26 PM EST) Final Diagnosis [id number] ? Location: [facility] The signing pathologist has (i) examined the relevant preparation(s) for the specimen(s) and (ii) rendered or confirmed the diagnosis(es). . ?Surgical Pathology DIAGNOSIS A - Right mandibular cyst, excision: - Dentigerous cyst. Electronically signed by: ?Dana Flowers MD Verified: ??04/17/2023 14:20 ??Pathologist Performed at: ??-[facility] Dept. of Pathology, [place] [address] Tool Room Attendant: Ian Madrid MD, AP, ??CLIA Certificate: [id number] DISCUSSION Sections show a cyst lined by predominantly non-keratinizing squamous to cuboidal epithelium with underlying fibrosis, giant cell reaction with cholesterol clefts, patchy chronic inflammation, and reactive woven bone. There is no evidence of odontogenic keratocyst, ameloblastoma, or other neoplasm. ADDITIONAL STUDIES Multiple deeper levels were examined. SPECIMEN(S) SUBMITTED A - Right mandibular cyst, excision (1) CLINICAL INFORMATION Right mandibular cyst SPECIMEN PROCESSING A - Labeled/Fixative: Right mandibular cyst, fresh. Quantity/Size: Single, 2.9 x 2.0 x 1.0 cm. Tissue Description: Portion of red-brown, rubbery tissue with a 0.6 x 0.6 x 0.4 cm invagination and a smooth, glistening lining. Sections/Processi ng: Fish Checker sections in 1 cassette labeled A1. ??vmj 04/17/2023 2:20 PM EST [facility] SPECIMEN FROM CYST / Unknown 04/10/2023 4:26 PM EST 04/10/2023 4:26 PM EST Nimesh Aquino MD PATHOLOGY/CYTOLOGY O CLARIBEL Performing Organization Address City/[facility]/ZIP Co de Phone Number [facility] [address] [place] [address] * Specimen to Pathology (04/10/2023 4:26 PM EST) AP Specimen 04/10/2023 4:26 PM EST 04/10/2023 4:26 PM EST Narrative [facility] - 04/10/2023 4:26 PM EST Specimen requisition ordered. ??Separate Pathology report to follow Nimesh Aquino MD PATHOLOGY/CYTOLOGY O CLARIBEL Performing Organization Address City/[facility]/ZIP Co de Phone Number [facility] [place] [address] documented in this encounter Visit Diagnoses Diagnosis Cyst of mandible Other cysts of jaws Cyst of mandible Other cysts of jaws documented in this encounter Administered Medications Inactive Administered Medications - up to 3 most recent administrations Medication Order MAR Action Action Date Dose Rate Site acetaminophen (Tylenol) tablet 975 mg 975 mg, Oral, ONCE, 1 dose, On 04/10/23 at 1400, Administer with a SIP of water only. Maximum dose of acetaminophen is 4,000 mg from all sources in 24 hours., Day of Surgery (Day of Procedure), Routine Given 04/10/2023 1:56 PM EST 975 mg BUpivacaine (pf) (Marcaine) (2.5 mg/mL) 0.25% injection PRN, Starting on Mon04/10/23 at 1633, Until Mon04/10/23 at 2050, Intra-Operative (Intra-Procedure), Routine Given 04/10/2023 4:33 PM EST 6 mLs 19- Surgical Site gelatin adsorbable 12-7 mm sponge PRN, Starting on Mon04/10/23 at 1629, Until Mon04/10/23 at 2050, Intra-Operative (Intra-Procedure) Given 04/10/2023 4:29 PM EST 1 each 19- Surgical Site ibuprofen (Advil) tablet 600 mg 600 mg, Oral, ONCE, 1 dose, On Mon04/10/23 at 1800, Administer orally with milk or food to minimize GI irritation. Maximum dose of 3,200 mg from all sources in 24 hours, Routine Given 04/10/2023 6:03 PM EST 600 mg lidocaine-EPINEPHrine (1% - 1:100,000) injection PRN, Starting on Mon04/10/23 at 1617, Until Mon04/10/23 at 2050, Intra-Operative (Intra-Procedure), Routine Given 04/10/2023 4:17 PM EST 6 mLs 19- Surgical Site documented in this encounter Active and Recently Administered Medications Times are shown in EST. Scheduled Medication Order 04/08/2023 04/09/2023 04/10/2023 acetaminophen (Tylenol) tablet 975 mg (COMPLETED) 975 mg, Oral, ONCE, 1 dose, On Mon04/10/23 at 1400, Administer with a SIP of water only. Maximum dose of acetaminophen is 4,000 mg from all sources in 24 hours., Day of Surgery (Day of Procedure), Routine 1356 (Given - Provid er: Monse Elias RN) ceFAZolin (Ancef) 2 g in dextrose 5% 100 mL infusion (COMPLETED) 2 g, Intravenous, ROLL MECHANIC TO O.R., 1 dose, On Mon04/10/23 at 0730, Administer over 30 Minutes, Indication for (Active or Suspected): Prophylaxis 1604 (Given - Provid er: Dilcia Ortiz MD) ibuprofen (Advil) tablet 600 mg (COMPLETED) 600 mg, Oral, ONCE, 1 dose, On Mon04/10/23 at 1800, Administer orally with milk or food to minimize GI irritation. Maximum dose of 3,200 mg from all sources in 24 hours, Routine 1803 (Given - Provid er: Marialuisa Landon RN) Continuous Medication Order 04/08/2023 04/09/2023 04/10/2023 lactated ringers infusion (CANCELED) 1,000 mL, at 100 mL/hr, Intravenous, CONTINUOUS, Starting on Mon04/10/23 at 1400, Until Mon04/10/23 at 1848, Day of Surgery (Day of Procedure) 1553 (New Bag - Prov ider: Dilcia Ortiz MD)1634 (Anesthesia Volume Adjustment - Provider: Dilcia Ortiz MD) PRN Medication Order 04/08/2023 04/09/2023 04/10/2023 BUpivacaine (pf) (Marcaine) (2.5 mg/mL) 0.25% injection (CANCELED) PRN, Starting on Mon04/10/23 at 1633, Until Mon04/10/23 at 205, Intra-Operative (Intra-Procedure), Routine 1633 (Given - Provid er: Nimesh Aquino MD) gelatin adsorbable 12-7 mm sponge (CANCELED) PRN, Starting on Mon04/10/23 at 1629, Until Mon04/10/23 at 205, Intra-Operative (Intra-Procedure) 1629 (Given - Provid er: Nimesh Aquino MD) lidocaine-EPINEPHrine (1% - 1:100,000) injection (CANCELED) PRN, Starting on Mon04/10/23 at 1617, Until Mon04/10/23 at 205, Intra-Operative (Intra-Procedure), Routine 1617 (Given - Provid er: Nimesh Aquino MD) No Frequency Medication Order 04/08/2023 04/09/2023 04/10/2023 ceFAZolin (Ancef) 1 gram injection 1 dose, Starting on Mon04/10/23 at 1347, Until Mon04/10/23 at 205, Monse Elias: cabinet override 1400 (Due) documented in this encounter Care Teams Oven Operator Automatic Relationship Specialty Start Date End Date Vira Hilton MD [facility] [address] [place] [address] PCP - General Family Medicine 01/10/23 documented as of this encounter
--- OUTSIDE RECORDS SUMMARY | 2023-12-22 19:00 | XMS_ITS | Encounter Summary ---
[place] [address] Care Team Providers Care Wind Turbine Mechanical Engineer Name Role Phone Vira Hilton MD Primary Care Provider [phone] Encounter Details Date Type Department Care Team (Late st Contact Info) Description 06/15/2023 Telephone [place] [phone] Ginny Samuels RN Social History Tobacco Use Types Packs/Day Years Used Date Smoking Tobacco: Never Passive Smoke Exposure: Past Smokeless Tobacco: Former Comments:Chewing tobacco for the past 25-30 years. Chews on both sides Alcohol Use Standard Drinks/Week Comments Yes 4 (1 standard drink = 0.6 oz pur e alcohol) [facility] Inpatient Questions Answer Date Recorded Does Anyone [...] encounter Miscellaneous Notes * Telephone Encounter - Inez White RN - 06/15/2023 10:47 AM EST Caller: Alhaji Relationship: Self Clarified Two Patient Identifiers: [x] Reason For Call: Foul taste, bad smelling discharge Assessment/Symptom Review (onset, location, duration, what makes it better or worse, pertinent positives and negatives): Date of procedure: 04/10/23 Pain: achey but no sharp pain Swelling: none Drainage/Foul Taste: drainage, foul taste, brown/red discharge with bad smell Numbness/tingling: denies Fever/Chills: denies Diet: regular, avoiding hard foods Medications: none Review of Systems Related to Reason for Call: System POS NEG Not Applicable Head (ENT /Neuro) [x] [] [] Cardiac [] [x] [] Respiratory [] [x] [] GI [] [x] [] [] [x] [] Musculoskeletal [] [x] [] Integumentary [] [x] [] Mental Health [] [x] [] Select Specific Decision Support Tool Used: Reviewed with provider Disposition/Plan of Care: Call back if no improvement; anitbiotic and peridex mouthwash ordered to [facility] in [place], [place], alternate peridex with warm salt water rinses. Re-evaluate on 06/22 at follow up appointment. Patient/Caregiver verbalizes understanding of plan of care: Yes Patient/Caregiver agrees with plan: Yes Advised patient/caregiver to: call office back for any new or worsening symptoms Patient/Caregiver demonstrates understanding via teach back: Yes documented in this encounter Plan of Treatment Upcoming Encounters Date Type Department Care Team (Late st Contact Info) Description 03/07/2024 3:00 PM EST Office Visit [place] [address] Nimesh Aquino MD [facility] [place] [address] documented as of this encounter Visit Diagnoses Not on filedocumented in this encounter Care Teams Wind Turbine Mechanical Engineer Relationship Specialty Start Date End Date Vira Hilton MD [address] [place] [address] PCP - General Family Medicine 01/10/23 documented as of this encounter
--- OUTSIDE RECORDS SUMMARY | 2023-12-22 19:00 | XMS_ITS | Encounter Summary ---
[place] [address] Care Team Providers Care Separator Operator Shellfish Meats Name Role Phone Vira Hilton MD Primary Care Provider [phone] Reason for Visit * Consultation (Urgent) - Authorized Specialty Diagnoses / Procedures Referred By Bao simpson Referred To Contact Maxillofacial Surgery Diagnoses Radiolucent 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 Vira Hilton MD [address] [place] [address] [address] [facility] [address] [place] [phone] Referral ID Status Reason Start Date Expiration Date Visits Requested Visits Authorized [id number] Authorized Consult, Test & Treat PCP Updated and/or Approved 03/02/2023 02/22/2024 6 6 Encounter Details Date Type Department Care Team (Late st Contact Info) Description 03/02/2023 7:30 AM EDT Procedure [place] [address] Nimesh Aquino MD [facility] [place] [address] Cyst of mandible Social History [...] Progress Notes * Nimesh Aquino MD - 03/02/2023 7:30 AM EDT Images from the original note were not included. Clinic Biopsy Surgical Procedure: Pt did not start recommended antibiotic 2 days prior to procedure 4 tablets of Amoxicillin (500mg each)given prior to procedure Recommendations/plan from 01/20/2023 office visit: -Plan for biopsy under local anesthesia -Amoxicillin course starting 2 days prior -Plan for probable surgical intervention and possible drain placement. Reviewed potential risks including fracture, nerve injury, bleeding, infection, chance for recurrence depending on underlying pathology. He does think he could adhere to a strict liquid diet perhaps in lieu of MMF. Alhaji Allen presents for the scheduled excision/biopsy of right mandible with local anesthesia. The patient was brought to the office, the site was confirmed, and consent and risks were reviewed. After appropriate local anesthesia was administered, the patient underwent excisional biopsy of right mandible, photo sent to pathology with specimen. Excision performed after third molar incision extending mesial to #31 with lingual nerve sparing approach. A bony window was made distal to #31 and and cyst lining identified and removed. Copper-bertin fluid and thin lining appreciated There was no evidence of injury to adjacent teeth, nerves. The surgical site mucosa was approximated with 3-0 chromic suture. The patient tolerated the procedure well and following a recovery period,a complete set of instructions both written and verbal were reviewed with the patient. The patient was instructed to contact the clinic in the interm if there was any question or concern during the post operative period. Specimen: Sent to general pathology at [facility] Local Anesthesia: 4cc's 2% Lidocaine with Epi 1:100,000 Postop Medications: augmentin plus peridex Follow Up: We will call patient with biopsy result and determine if follow up is necessary. Patientis aware if that they do not here from us regarding the result that it is there responsibility to call us 2 weeks from time to biopsy to discuss results. Patient will need surgery to remove cyst completely and order placed. Nimesh Aquino MD, DMD, FACS documented in this encounter Plan of Treatment Upcoming Encounters Date Type Department Care Team (Late st Contact Info) Description 03/07/2024 3:00 PM EST Office Visit [place] [address] Nimesh Aquino MD [facility] [place] [address] documented as of this encounter Procedures Procedure Name Priority Date/Time Associated Diagnosis Comments SPECIMEN TO PATHOLOGY Routine 03/02/2023 8:27 AM EDT Cyst of mandible SURGICAL PATHOLOGY REPORT Routine 03/02/2023 8:00 AM EDT documented in this encounter Results * Specimen to Pathology (03/02/2023 8:27 AM EDT) AP Specimen 03/02/2023 8:27 AM EDT 03/02/2023 8:27 AM EDT Narrative [facility] - 03/02/2023 8:27 AM EDT Specimen requisition ordered. ??Separate Pathology report to follow Nimesh Aquino MD PATHOLOGY/CYTOLOGY O RDERABLES [facility] [place] [address] * Surgical Pathology Report (03/02/2023 8:00 AM EDT) Final Diagnosis [id number] ? Location: 5B The signing pathologist has (i) examined the relevant preparation(s) for the specimen(s) and (ii) rendered or confirmed the diagnosis(es). . ?Surgical Pathology DIAGNOSIS Jaw cyst lining, biopsy: - Dentigerous cyst. ?? (see Discussion.) Electronically signed by: ?MD Vicki, Alexander Coy Verified: ??03/14/2023 9:21 ?? Pathologist Performed at: ??-[facility] Dept. of Pathology, [place] [address] Radiology Orderly: Ian Madrid MD, AP, ??CLIA Certificate: [id number] DISCUSSION There is no evidence of ameloblastoma or odontogenic keratocyst. The cyst lining is composed of multilayered cuboidal to squamoid cells devoid of hyperkeratosis. ADDITIONAL STUDIES Whole slide scan: international account representative SPECIMEN(S) SUBMITTED A - jaw cyst lining, biopsy (1) CLINICAL INFORMATION See x-ray of jaw in procedure note from today. ??Large unilocular cyst emanating from displaced impacted #32. ??Incisional biopsy performed. ??Large right mandibular cyst. SPECIMEN PROCESSING A - Labeled/Fixative: Patient demographics, formalin. Quantity/Size: Two, 0.9 x 0.2 and 1.5 x 0.2 cm. Tissue Description: Ortega-pink strips of membranous tissue. Sections/Processi ng: Submitted in toto ??in 1 cassette labeled A1. ??jnr 03/14/2023 9:21 AM EST [facility] SPECIMEN FROM CYST / Unknown 03/02/2023 8:00 AM EDT 03/02/2023 8:00 AM EDT Nimesh Aquino MD PATHOLOGY/CYTOLOGY O RDERABLES [facility] [place] [id number] [facility] [place] [address] documented in this encounter Visit Diagnoses Diagnosis Cyst of mandible Other cysts of jaws documented in this encounter Care Teams Separator Operator Shellfish Meats Relationship Specialty Start Date End Date Vira Hilton MD [address] [place] [address] PCP - General Family Medicine 01/10/23 documented as of this encounter
--- OUTSIDE RECORDS SUMMARY | 2023-12-22 19:00 | XMS_ITS | Encounter Summary ---
[place] [address] Care Team Providers Care Retirement Village Manager Name Role Phone Vira Hilton MD Primary Care Provider [phone] Encounter Details Date Type Department Care Team (Latest Contact Info) Description 03/02/2023 Travel Social History Tobacco Use Types Packs/Day [...] PM EST Office Visit [place] [address] Nimesh Aquino MD [facility] [place] [address] documented as of this encounter Visit Diagnoses Not on filedocumented in this encounter Care Teams Retirement Village Manager Relationship Specialty Start Date End Date Vira Hilton MD [facility] [address] [place] [address] PCP - General Family Medicine 01/10/23 documented as of this encounter
--- OUTSIDE RECORDS SUMMARY | 2023-12-22 19:00 | XMS_ITS | Data Portability ---
Author Organization [facility] Address [address] [place] [address] Assessment No assessment recorded. Plan of Treatment Reminders Order Date Submit Date Provider Last Modified By Organization Details Last Modified Time Details Appointments Annual Wellness Exam 40 2023 03:00P M Not available Not available Not available Nurse Visit 20 2023 08:30A M Not available Not available Not available Annual Wellness Exam 30 2024 08:20A M Not available Not available Not available Lab fecal occult blood, stool 2022 023 [facility], [address], [place], [address], 03/29/2023 09:44:34 CMP, serum or plasma 2023 024 [facility] (Registration ), [address] [place] [address] [place], [address], 12/22/2023 16:17:34 HbA1c (hemoglob in A1c), blood 2023 024 [facility] (Registration ), [address] [place] [address] [place], [address], 12/22/2023 16:17:34 fecal occult blood, immunoass ay, stool 2023 024 [facility], [address], [place], [address], 12/22/2023 16:03:13 Referral None recorded. Procedures colonosco py screening (PROC) - He says that he called to schedule, and was told he would get a call back but never did... 2023 024 [facility], [address] [place] [address] , [address], [place], [address], 12/22/2023 16:10:35 Surgeries None recorded. Imaging None recorded. Medication Orders None recorded. Patient TargetsNo targets recorded. Patient Instructions Encounter Date Encounter Id Patient Instructions Last Modified By Organization Details Last Modified Time 12/22/2023 [id number] exercise rbonnell Not available 12/21 15:58:29 Reason for Referral None Reported. Results Created Date Observation Date Name Description Value Unit Range Abnormal Flag LastModifiedBy Organization Detail LastModifiedTime 03/29/2003/29/2023 fecal occul t blood , stool Occult Blood positi ve Not Available [facility] [address], [place], [address], 03/29/2023 09:39:02 Result Notes None recorded. Problems Name Status Onset Date Resolution Date Notes Provider Name and Address Organization Details Recorded Time Adult health examination Active [address], [place], [address] , [facility] 4 16:34:12 Fatigue Completed 201610/12/2016 Problem Code: R53.83; Problem Code Type: ICD-10; Not Available [facility] 3 05:57:41 Irritability and anger Active [address], [place], [address] , [facility] 4 16:34:21 Prediabetes Active [address], [place], [address] , [facility] 4 16:34:28 Allergic contact dermatitis Completed [...] L23.9; Problem Code Type: ICD-10; Not Available [facility] 3 05:57:41 Tobacco user Completed 202012/22/[address], [place], [address] , [facility] 4 15:20:16 Hyperlipidemia screening Completed 202201/02/2023 Problem Code: Z13.220; Problem Code Type: ICD-10; Not Available [facility] 3 05:57:41 Screening for malignant neoplasm of colon Completed 202212/21/2023 Problem Code: Z12.11; Problem Code Type: ICD-10; MD [address], [place], [address] , [facility] 4 16:34:34 Elevated blood-pressure reading without diagnosis of hypertension Completed 202012/19/2022 Problem Code: R03.0; Problem Code Type: ICD-10; Not Available [facility] 3 05:57:42 Obesity Completed 201812/19/2022 Problem Code: E66.9; Problem Code Type: ICD-10; MD [address], [place], [address] , [facility] 4 15:11:45 Major depression, single episode Completed 201601/23/2019 Problem Code: F32.9; Problem Code Type: ICD-10; Not Available [facility] 3 05:57:42 Impaired fasting glycemia Completed 201601/25/2023 [...] For more information contact LIV MARES at [phone] Problem Code: R73.01; Problem Code Type: ICD-10; Not Available [facility] 3 05:57:42 Obesity Active [address], [place], [address] , [facility] 4 15:11:45 Problem Notes None recorded. Procedures Surgical History Date Name Laterality Status Provider Name and Address Organization Details Recorded Time 3 excision of lesion of jaw bone completed MD [address], [place], [address], [facility] 04/11/2023 20:07:00 Imaging Results None recorded. [...] Available Not Available Not Available amoxicillin 875 mg-laxmi gonzalez clavulanate 125 mg tablet Take 1 tablet [...] mass index (BMI) Body weight Body temperature Heart rate Systolic blood pressure Diastolic blood pressure Provider Name and Address Organization Details Last Updated DateTime 3 172.72 cm 29.8 kg/m2 12821.5 g 98.6 [degF] 54 /min 102 mm[Hg] 70 mm[Hg] RUSS BATES MA [place] - [facility]. 3 13:29:37 Date Recorded Body height Body mass index (BMI) Body weight Body temperature Oxygen saturation Oxygen saturation in Arterial blood by Pulse oximetry Respiratory rate Heart rate Systolic blood pressure Diastolic blood pressure Provider Name and Address Organization Details Last Updated DateTime 172.72 cm 30.3 kg/m2 82121.8 8 g 97.7 [degF] 97 % 97 % 16 /min 70 /min 110 mm[Hg] 80 mm[Hg] JASKARAN CHAVES LPN [facility] 14:59:01 Social History Question Answer Notes LastModified by Organizat ion Details LastModified Time Tobacco Smoking Status Never Smoker VIRA ONTIVEROS MD [address], [place], [address], [facility] 12/22/2023 15:22:16 Do You Have An [...] Recorded Time zoster recombinant 12/22/2023 completed MANUEL SANTIAGO, [place] - [facility]. 12/22/2023 16:05:10 Tdap 01/22/2018 completed Not Available [facility] 06:07:07 Influenza, split virus, quadrivalent, PF 01/23/2019 completed Not Available [facility] 03/10/2023 06:07:07 Influenza, split virus, quadrivalent, PF 01/27/2020 completed Not Available [facility] 03/10/2023 06:07:07 Influenza, split virus, quadrivalent, PF 01/27/2021 completed Not Available [facility] 03/10/2023 06:07:07 Influenza, split virus, quadrivalent, preservative 01/20/2017 completed Not Available [facility] 03/10/2023 06:07:07 influenza, unspecified formulation 02/20/2016 completed Not Available [facility] 03/10/2023 06:07:07 Past Encounters Encounter ID Performer Location Encounter Start Date Encounter Closed Date Diagnosis/Indication Diagnosis SNOMED-CT Code [id number] VIRA ONTIVEROS MD [address] [place] [address] 03/29/2023 08:49:12 03/29/2023 16:45:53 Screening for malignant neoplasm of colon [id number] JUAN MANUEL MYERS, [address] [place] [address] 04/07/2023 13:21:07 04/07/2023 15:16:54 Pre-surgery evaluation [id number] JASKARAN CHAVES LPN [address] [place] [address] 12/22/2023 14:49:42 12/22/2023 15:44:09 Active or passive immunization 566727081 Screening for malignant neoplasm of colon 708155795 Adult [facility] examination 762703611 Prediabetes 705119556 Obesity 488623299 Health Concerns Section Related Observation LastModified by Organization Detai ls LastModified Time None Recorded Concern Status LastModified by Organization Details LastModified Time None Recorded Advance Directives Directive N: paperwork given today Payers Encounter Date Sequence Insurance Name Policy Number Policy Beltre Covered Member ID Beltre Member ID Guarantor Name 03/29/2023 1 *SELF PAY* Prudencio Allen 04/07/2023 1 *SELF PAY* Prudencio Allen 12/22/2023 1 [facility] (HMO) Alhaji Allen [id number] Alhaji Allen Notes Date Note Type Note Provider Name and Address Organization Details Recorded Time 04/07/2023 text/html HPI Notes: Pre-O p [facility] Reported by patient. Surgery to be Performed: Excision benign cyst, mandible, right side. Grew around his wisdom tooth. [place] [facility] [place] Dr. Aquino Severity: mild; has occasional tingling feeling but that's it. This was found on routine dental imaging, confirmed with CT. Had biopsy done as well and cyst is benign. Risk Factors no cognitive impairment; no functional impairment; no malnutrition; no frailty; able to climb a flight of stairs (exercise capacity>4 METS); no obstructive sleep apnea; non-smoker; no alcohol misuse; no illicit drug use; no chronic cardiopulmonary condition; not obese; former smokeless tobacco user Anesthesia hx: no family history of anesthesia complications; no history with anesthesia Functional Ability: able to walk up stairs; able to perform heavy work around the house; no difficulty walking up hills Alhaji is a 47 year old male who is here today for Pre-op exam. His procedure is on 04/10/23. JUAN MANUEL MYERS, CABLE [employer]RA[employer]ER [address], [place], [address], [facility]. 04/07/2023 14:06:10 12/22/2023 text/html HPI Notes: Here for Annual [...] snack after dinner. He does like sweets. MANUEL REYES, [facility]. 12/22/2023 16:03:29
--- OUTSIDE RECORDS SUMMARY | 2023-12-22 19:00 | XMS_ITS | Clinical Summary ---
Author Organization [facility] Address [address] [place] [address] Care Team Providers Care Merchandising Coordinator Name Role Phone Unavailable Primary Care Provider Unavailabl e Social History Tobacco Use Types Packs/Day Years Used Date Smoking Tobacco: Never Assessed Sex and Gender Information Value Date Recorded Sex Assigned at Not on file Gender Identity Not on file Sexual Orientation Not on file Plan of Treatment Health Maintenance Due Date Last Done Comments Hepatitis B Vaccine (1 of 3 - 19+ 3-dose series) 10/09 COVID-19 Vaccine ( season) 2022 Hepatitis C Screen Completed 01/27/2021 Procedures Procedure Name Priority Date/Time Associated Diagnosis Comments HEPATITIS C AB W REFLEX TO HCV RNA BY PCR Routine 01/27/2021 17:02 EDT from Last 3 Months or Most Recently Relevant to Health Maintenance Results * HEPATITIS C AB W REFLEX TO HCV RNA BY PCR (01/27/2021 17:02 EDT) Hep C Antibody Negative Negative 01/29/2021 10:28 EDT [facility] Blood VENOUS BLOOD / Unknown 01/27/2021 17:02 EDT 01/28/2021 16:13 EDT Provider Outr Resulting Lab CHEMISTRY & BLOOD GAS ORDERABLES [facility] [address] [place] [address] from Last 3 Months or Most Recently Relevant to Health Maintenance
--- OUTSIDE RECORDS SUMMARY | 2023-12-22 19:00 | XMS_ITS | Encounter Summary ---
Author Organization [facility] [place] [address] Care Team Providers Care Literacy Coach Name Role Phone Vira Hilton MD Primary Care Provider Reason for Visit * Consultation (Urgent) - Authorized Specialty Diagnoses / Procedures Referred By Bao simpson Referred To Contact Maxillofacial Surgery Diagnoses Radiolucent 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 Vira Hilton MD [address] [place] [address] [address] [facility] Maxillo Surg [address] [place] [phone] Referral ID Status Reason Start Date Expiration Date Visits Requested Visits Authorized [id number] Authorized Consult, Test & Treat PCP Updated and/or Approved 03/02/2023 02/22/2024 6 6 Encounter Details Date Type Department Care Team (Late st Contact Info) Description 06/22/2023 3:00 PM EST Office Visit [place] [address] Nimesh Aquino MD [facility] [place] [address] Status post surgery Social History [...] Progress Notes * Nimesh Aquino MD - 06/22/2023 3:00 PM EST Images from the original note were not included. ORAL-MAXILLOFACIAL SURGERY OUTPATIENT CLINIC FOLLOW-UP VISIT Name: Alhaji Allen Age/Sex: 47 y.o. male History of Present Illness Alhaji Allen is a 47 y.o. male seen for follow-up regarding Cyst of mandible S/P 04/10/23, A complete history of the Alhaji 's symptoms and physical signs were reviewed with attention to initial findings and interval progression, pain, bleeding, swelling, lumps, bumps, drainage, dysphagia, odynophagia, paresthesia, dysarthria and systemic effects. Pertinent interval history: Drainage started two weeks ago with a foul taste Started antibiotics on Monday Had some swelling on the face but resolved No change in bite or numbness Past Medical/Social/Dental History No past medical history [...] per week amoxicillin-clavulanate (Augmentin) 875-125 mg tablet chlorhexidine (Peridex) 0.12 % Mouthwash HYDROcodone-acetaminophen (Glenoma) 5-325 mg tablet ibuprofen (Advil) 600 mg tablet ibuprofen (Advil) 600 mg tablet HYDROcodone-acetaminophen (Glenoma) 5-325 mg tablet No Known Allergies Review [...] exam: No trismus No oral lesions visualized Irrigated site and no purlence, fine area patent Surrounding mucosa pink #31 without mobility No sign of fracture Neuro: a/o x3 Neck: soft, supple Psych: appropriate, responds to questions normally Imaging Panorex reviewed. No fracture Personally reviewed and evaluated. Some early consolidation present ASSESSMENT & RECOMMENDATIONS Assessment: 6 weeks s/p removal of right mandibular cyst Recommendations/plan: -continue irrigation -reassurance no current sign of infection -follow up 2 months with panorex and then if ok then 6 months afterward and may consider CT scan -continue to soft diet We appreciate the opportunity to be involved in Mr. Allen's care. Nimesh Aquino MD, DMD 06/19/2023 3:28 PM documented in this encounter Plan of Treatment Upcoming Encounters Date Type Department Care Team (Late st Contact Info) Description 03/07/2024 3:00 PM EST Office Visit [place] [address] Nimesh Aquino MD [facility] [place] [address] documented as of this encounter Visit Diagnoses Diagnosis Status post surgery documented in this encounter Care Teams Literacy Coach Relationship Specialty Start Date End Date Vira Hilton MD [facility] [address] [place] [address] PCP - General Family Medicine 01/10/23 documented as of this encounter
--- OUTSIDE RECORDS SUMMARY | 2023-12-22 19:00 | XMS_ITS | Encounter Summary ---
[place] [address] Care Team Providers Care Insights Manager Name Role Phone Vira Hilton MD Primary Care Provider [phone] Encounter Details Date Type Department Care Team (Latest Contact Info) Description 08/29/2023 Travel Social History Tobacco Use Types Packs/Day Years Used Date Smoking Tobacco: Never Passive Smoke Exposure: Past Smokeless Tobacco: Former Comments:Chewing tobacco for the past 25-30 years. Chews on both sides Alcohol Use Standard Drinks/Week Comments Yes 4 (1 standard drink = 0.6 oz pur e alcohol) [facility] Inpatient Questions Answer Date Recorded Does Anyone [...] PM EST Office Visit [place] [address] Nimesh Aquino MD [facility] [place] [address] documented as of this encounter Visit Diagnoses Not on filedocumented in this encounter Care Teams Insights Manager Relationship Specialty Start Date End Date Vira Hilton MD [address] [place] [address] PCP - General Family Medicine 01/10/23 documented as of this encounter
--- OUTSIDE RECORDS SUMMARY | 2023-12-22 19:00 | XMS_ITS | Encounter Summary ---
[place] [address] Care Team Providers Care Fence Setter Name Role Phone Vira Hilton MD Primary Care Provider [phone] Reason for Visit * Consultation (Urgent) - Authorized Specialty Diagnoses / Procedures Referred By Bao simpson Referred To Contact Maxillofacial Surgery Diagnoses Radiolucent 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 Vira Hilton MD [address] [place] [address] [facility] [address] [place] [address] [facility] [address] [place] [phone] Referral ID Status Reason Start Date Expiration Date Visits Requested Visits Authorized [id number] Authorized Consult, Test & Treat PCP Updated and/or Approved 03/02/2023 02/22/2024 6 6 Encounter Details Date Type Department Care Team (Late st Contact Info) Description 08/29/2023 3:00 PM EDT Office Visit Maxillofacial [place] [address] Karl Perez PA [facility] [place] [address] Surgery follow-up Social History Tobacco Use Types Packs/Day Years [...] as of this encounter Progress Notes * Karl Perez PA - 08/29/2023 3:00 PM EDT Images from the original note were not included. ORAL-MAXILLOFACIAL SURGERY OUTPATIENT CLINIC FOLLOW-UP VISIT Name: Alhaji Allen Age/Sex: 47 y.o. male History of Present Illness Alhaji Allen is a 47 y.o. male seen for follow-up regarding Jaw Cyst right mandibile. Prior procedure/biopsy/surgery and date(s): 04/10/23 Pertinent pathology results: A complete history of the Alhaji 's symptoms and physical signs were reviewed with attention to initial findings and interval progression, pain, bleeding, swelling, lumps, bumps, drainage, dysphagia, odynophagia, paresthesia, dysarthria and systemic effects. Pertinent interval history: Denies numbness Denies drainage or foul taste Denies swelling Normal diet, sometimes favors the right side still Past Medical/Social/Dental History No past medical history [...] week amoxicillin-clavulanate (Augmentin) 875-125 mg tablet HYDROcodone-acetaminophen (Greenup) 5-325 mg tablet ibuprofen (Advil) 600 mg tablet ibuprofen (Advil) 600 mg tablet HYDROcodone-acetaminophen (Greenup) 5-325 mg tablet No Known Allergies Review [...] salivary flow. General: No acute distress, pleasant Head: normocephalic, external ears unremarkable Nose: external exam unremarkable, patent nares Focused oral exam: No trismus Surrounding mucosa pink, no drainage expressable #31 without mobility Mandible stable with bimanual manipulation Neuro: alert and oriented Neck: soft, supple CV: no cyanosis or pallor Respiratory: no increased work of breathing. Normal respirations Psych: appropriate, responds to questions normally Imaging Personally reviewed and evaluated ASSESSMENT & RECOMMENDATIONS Assessment: Healing well 5 months s/o dentigerous cyst of 32 debridement. Good evidence of bony fill. Recommendations/plan: Diet as tolerated Continue good oral hygiene, no need to specifically irrigate that area any longer Follow-up in about 6 months for wound check and repeat panorex vs CBCT, call sooner with concerns We appreciate the opportunity to be involved in Mr. Allen's care. EDDIE Neil 08/28/2023 1:27 PM documented in this encounter Plan of Treatment Upcoming Encounters Date Type Department Care Team (Late st Contact Info) Description 03/07/2024 3:00 PM EST Office Visit [place]illofacial [place] [address] Nimesh Aquino MD [facility] [place] [address] documented as of this encounter Visit Diagnoses Diagnosis Surgery follow-up Follow-up examination, following unspecified surgery documented in this encounter Care Teams Fence Setter Relationship Specialty Start Date End Date Vira Hilton MD [facility] [address] [place] [address] PCP - General Family Medicine 01/10/23 documented as of this encounter
--- OUTSIDE RECORDS SUMMARY | 2023-12-22 19:00 | XMS_ITS | Encounter Summary ---
Author Organization [facility] [place] [address] Care Team Providers Care Fly Winder Name Role Phone Vira Hilton MD Primary Care Provider [phone] Encounter Details Date Type Department Care Team (Late st Contact Info) Description 03/15/2023 Telephone [place]ill[place] [address] Astrid Mascorro Social History Tobacco Use Types Packs/Day Years Used Date Smoking Tobacco: Never Smokeless Tobacco: Former Comments:Chewing tobacco for the past 25-30 years. Chews on both sides Sex and Gender Information Value Date Recorded Sex Assigned at Not on file Gender Identity Not on file Sexual Orientation Not on file documented as of this encounter Miscellaneous Notes * Telephone Encounter - Astrid Mascorro - 03/15/2023 9:21 AM EST Michelle, Patient is scheduled to have surgery on 04/10/2023 . Follow up appointment is as follows: No follow up indicated in case. Thank you!! documented in this encounter Plan of Treatment Upcoming Encounters Date Type Department Care Team (Late st Contact Info) Description 03/07/2024 3:00 PM EST Office Visit [place] [address] Nimesh Aquino MD [facility] [place] [address] documented as of this encounter Visit Diagnoses Not on filedocumented in this encounter Care Teams Fly Winder Relationship Specialty Start Date End Date Vira Hilton MD [address] [facility] 1 [place] [address] PCP - General Family Medicine 01/10/23 documented as of this encounter
--- OUTSIDE RECORDS SUMMARY | 2023-12-22 19:00 | XMS_ITS | Clinical Summary ---
Author Organization [facility] [place] [address] Care Team Providers Care Cruise Counselor Name Role Phone Vira Hilton MD Primary Care Provider [phone] Allergies No known active allergies Medications No known medications Active Problems No known active problems Social History Tobacco Use Types Packs/Day Years [...] on file Sexual Orientation Not on file Last Filed Vital Signs Vital Sign Reading Time Taken Comments Blood Pressure 131/93 04/10/2023 5:15 PM EST Pulse 51 04/10/2023 6:05 PM EST Temperature 36.2 ??C (97.2 ??F) 04/10/2023 4:41 PM ES T Respiratory Rate 16 04/10/2023 4:41 PM EST Oxygen Saturation 98% 04/10/2023 6:05 PM EST Inhaled Oxygen Concentration - - Weight 86.2 kg (190 lb) 04/10/2023 1:34 PM EST Height 175.3 cm (5' 9) 04/10/2023 1:34 PM EST Body Mass Index 28.06 04/10/2023 1:34 PM EST Plan of Treatment Upcoming Encounters Date Type Department Care Team (Late st Contact Info) Description 03/07/2024 3:00 PM EST Office Visit [place] [address] Nimesh Aquino MD [facility] [place] [address] Health Maintenance Due Date Last Done Comments CT Colonography 1973 Colonoscopy 1973 Colorectal Cancer Screening 1973 FIT DNA 1973 FIT 1973 Sigmoidoscopy (10 year) with FIT yearly 1973 Sigmoidoscopy 1973 HIV screen 10/10/1991 Hepatitis C Screening 10/10/1991 Lipid Screening 10/10/1991 Hepatitis B vaccine (0-59 yrs) (1) 1992 Tdap adult 1992 Tetanus vaccine 1992 Diabetes Screening (HgbA1C or Glucose) 2013 Covid-19 Vaccine (1 - 2022-24 season) 2022 Zoster vaccine (1 of 2) 10/10/2023 Influenza (Flu) vaccine (1 o f 1 - Influenza standard series) 12/31/2023 Care Teams Cruise Counselor Relationship Specialty Start Date End Date Vira Hilton MD [facility] [address] [place] [address] PCP - General Family Medicine 01/10/23
--- OUTSIDE RECORDS SUMMARY | 2023-12-22 19:00 | XMS_ITS | Encounter Summary ---
Author Organization [facility] [place] [address] Care Team Providers Care Apartment Community Assistant Manager Name Role Phone Vira Hilton MD Primary Care Provider [phone] Encounter Details Date Type Department Care Team (Late st Contact Info) Description 08/29/2023 Interpretation Only Radiology [address] [place] [address] [place] [address] Unknown None Social History Tobacco Use Types Packs/Day Years Used Date Smoking Tobacco: Never Passive Smoke Exposure: Past Smokeless Tobacco: Former Comments:Chewing tobacco for the past 25-30 years. Chews on both sides Alcohol Use Standard Drinks/Week Comments Yes 4 (1 standard drink = 0.6 oz pur e alcohol) IPV Inpatient Questions Answer Date Recorded Does [...] PM EST Office Visit [place] [address] Nimesh Aquino MD [facility] ORAL SURGERY [place], [place] [id number] documented as of this encounter Procedures Procedure Name Priority Date/Time Associated Diagnosis Comments CT FACIAL (CONEBEAM/PANOREX) Routine 08/29/2023 documented in this encounter Results * CT/DX Facial/Oral (ConeBeam/Panorex) (08/29/2023) Anatomical Region Laterality Modality Other 08/29/2023 Narrative 08/29/2023 12:00 AM EDT Photographs - Images Procedure Note Unknown - 08/30/2023 Photographs - Images Unknown EA IMAGES documented in this encounter Visit Diagnoses Not on filedocumented in this encounter Care Teams Apartment Community Assistant Manager Relationship Specialty Start Date End Date Vira Hilton MD [address] [place] [address] PCP - General Family Medicine 01/10/23 documented as of this encounter
--- OUTSIDE RECORDS SUMMARY | 2023-12-22 19:00 | XMS_ITS | Encounter Summary ---
Author Organization [facility] Address [address] [place] [address] Care Team Providers Care Coal Washer Name Role Phone Unavailable Primary Care Provider Unavailabl e Encounter Details Date Type Department Care Team (Late st Contact Info) Description 01/28/2021 Lab Requisition [facility] Pathology & Laboratory Medicine - [facility] [address] [place] [address] Outr Resulting Lab, Provider Social History Tobacco [...] Procedure Name Priority Date/Time Associated Diagnosis Comments HIV 1/2 ANTIGEN AND ANTIBODY, 4TH GENERATION Routine 01/27/2021 17:02 EDT documented in this encounter Results * HIV 1/2 ANTIGEN AND ANTIBODY, 4TH GENERATION (01/27/2021 17:02 EDT) HIV 1 and 2 Antibody/p24 Antigen, 4th Generation Negative Negative 01/29/2021 10:37 EDT [facility] Comment: If acute HIV-1 infection is suspected in a high risk ??patient, submit plasma specimen for HIV-1 RNA quantitation test. Fourth Generation assay performed on the Siemens Centaur. Blood VENOUS BLOOD / Unknown 01/27/2021 17:02 EDT 01/28/2021 16:13 EDT Provider Outr Resulting Lab IMMUNOLOGY A ND SEROLOGY ORDERABLES [facility] [address] [place] [address] documented in this encounter Visit Diagnoses Not on filedocumented in this encounter
--- OUTSIDE RECORDS SUMMARY | 2023-12-22 19:00 | XMS_ITS | Encounter Summary ---
[place] [address] Care Team Providers Care Cork Compounder Name Role Phone Vira Hilton MD Primary Care Provider [phone] Reason for Visit * Auth/Cert (Routine) Specialty Diagnoses / Procedures Referred By Contac t Referred To Contact Diagnoses Unspecified cyst of jaw right mandibular cyst Procedures PRO EXCISION, BENIGN TUMOR, MANDIBLE EXCISION BENIGN TUMOR OR CYST, MANDIBLE (WRVU 4.91) Nimesh Aquino MD [facility] [place] [address] [facility] Referral ID Status Reason Start Date Expiration Date Visits Re quested Visits Authorized [id number] 1 1 Encounter Details Date Type Department Care Team (Latest Contact Info) Description 04/10/2023 12:00 PM EST - 04/10/2023 6:45 PM EST Hospital Encounter Outpatient [place] [address] Nimesh Aquino MD [facility] [place] [address] Cyst of mandible Discharge Disposition: Home Social History Tobacco Use Types Packs/Day Years Used Date Smoking Tobacco: Never Passive Smoke Exposure: Past Smokeless Tobacco: Former Comments:Chewing tobacco for the past 25-30 years. Chews on both sides Alcohol Use Standard Drinks/Week Comments Yes 4 (1 standard drink = 0.6 oz pur e alcohol) [facility] Inpatient Questions Answer Date Recorded Does [...] closest emergency room or call the hospital sponge press operator at [phone] and ask for physician regional owner operator truck driver covering for your physician. Questions or problems after 5pm or on a weekend: Call the [facility] sponge press operator at and ask for the physician regional owner operator truck driver covering for your doctor. At 2 pm [...] may be helpful. Most swelling will occur -11 hours following the procedure. Mouth Rinse: Vigorous [...] 8am-5pm M-F please call our office at [phone] otherwise call the main number [phone] and ask to connect with Dr. Aquino and if no response within 30 minutes please call and ask to speak with the ENT resident regional owner operator truck driver. documented in this encounter Medications at Time of Discharge Medication Sig Dispensed Refills Start Date End Date chlorhexidine (Peridex) 0.12 % Mouthwash Take 15 mLs by mouth 2 times daily for 7 days. 210 mL 04/10/2023 04/17/2023 chlorhexidine (Peridex) 0.12 % Mouthwash Take 15 mLs by mouth 2 times daily for 7 days. 210 mL 04/10/2023 04/17/2023 HYDROcodone-acetaminoph en (Inez) 5-325 mg tablet Take 1-2 tablets by [...] Pain. 20 tablet 04/10/2023 08/29/2023 HYDROcodone-acetaminoph en (Inez) 5-325 mg tablet Take 1-2 tablets by [...] Aquino MD - 04/10/2023 4:11 PM EST [facility] Operative Note Patient Name: Alhaji Allen : [id number] MR#: [id number] Case Date: 04/10/2023 Surgeon: Surgeon(s) and Role: [...] PM EST Office [place] [address] Nimesh Aquino MD [facility] DR ORAL SURGERY [place] [id number] documented as of this encounter Procedures Procedure Name Priority Date/Time Associated Diagnosis Comments SURGICAL PATHOLOGY REPORT Routine 04/10/2023 4:26 PM EST SPECIMEN TO PATHOLOGY Routine 04/10/2023 4:26 PM EST Excision, Benign Tumor, Mandible ([id number]) Yes 04/10/2023 3:53 PM EST Cyst of mandible EXCISION BENIGN TUMOR OR CYST,MANDIBLE Routine 04/10/2023 1:34 PM EST Cyst of mandible documented in this encounter Results * Surgical Pathology Report (04/10/2023 4:26 PM EST) Final Diagnosis [id number] ? Location: [facility] The signing pathologist has (i) examined the relevant preparation(s) for the specimen(s) and (ii) rendered or confirmed the diagnosis(es). . ?Surgical Pathology DIAGNOSIS A - Right mandibular cyst, excision: - Dentigerous cyst. Electronically signed by: ?Dana Flowers MD Verified: ??04/17/2023 14:20 ??Pathologist Performed at: ??-[facility] Dept. of Pathology, [place] [address] Client Support Associate: Ian Madrid MD, FCAP, ??CLIA Certificate: [id number] DISCUSSION Sections show a cyst lined by [...] and a smooth, glistening lining. Sections/Processi ng: Laboratory Animal Caretaker sections in 1 cassette labeled A1. ??vmj 04/17/2023 2:[address] [facility] SPECIMEN FROM CYST / Unknown 04/10/2023 4:26 PM EST 04/10/2023 4:26 PM EST Nimesh Aquino MD PATHOLOGY/CYTOLOGY O [place] Performing Organization Address [facility] Co de Phone Number [place], [place] [id number] [place] [address] [place] [address] * Specimen to Pathology (04/10/2023 4:26 PM EST) AP Specimen 04/10/2023 4:26 PM EST 04/10/2023 4:26 PM EST Narrative [facility] - 04/10/2023 4:26 PM EST Specimen requisition ordered. ??Separate Pathology report to follow Nimesh Aquino MD PATHOLOGY/CYTOLOGY O [place] Performing Organization Address [facility] Co de Phone Number [facility] [place] [address] documented in this encounter Visit Diagnoses Diagnosis [...] Given 04/10/2023 1:56 PM EST 975 mg ibuprofen (Advil) tablet 600 mg 600 mg, Oral, ONCE, 1 dose, On Mon04/10/23 at 1800, Administer orally with milk or food to minimize GI irritation. Maximum dose of 3,200 mg from all sources in 24 hours, Routine Given 04/10/2023 6:03 PM EST 600 mg documented in this encounter Active and Recently [...] 100 mL infusion (COMPLETED) 2 g, Intravenous, SAND MILL OPERATOR FACING SAND TO O.R., 1 dose, On Mon04/10/23 at [...] on Mon04/10/23 at 1347, Until Mon04/10/23 at 2050, Monse Elias: cabinet override 1400 (Due) documented in this encounter Care Teams Cork Compounder Relationship Specialty Start Date End Date Vira Hilton MD [address] [place] [address] PCP - General Family Medicine 01/10/23 documented as of this encounter
--- OUTSIDE RECORDS SUMMARY | 2023-12-22 19:00 | XMS_ITS | Encounter Summary ---
[place] [address] Care Team Providers Care Remote Sensing Technician Name Role Phone Vira Hilton MD Primary Care Provider [phone] Reason for Visit * Auth/Cert (Routine) Specialty Diagnoses / Procedures Referred By Contac t Referred To Contact Diagnoses Unspecified cyst of jaw right mandibular cyst Procedures PRO EXCISION, BENIGN TUMOR, MANDIBLE EXCISION BENIGN TUMOR OR CYST, MANDIBLE (WRVU 4.91) Nimesh Aquino MD [facility] [place] [address] [facility] Referral ID Status Reason Start Date Expiration Date Visits Re quested Visits Authorized [id number] 1 1 Encounter Details Date Type Department Care Team (Late st Contact Info) Description 04/10/2023 3:53 PM EST Anesthesia Event [place] [phone] Monika Talley MD [facility] [place] [address] Roslyn Huggins MD [facility] [place] [address] Anesthesia Record Procedure Summary Procedure Name Responsible Anesthesiologist Anesthesia Start Time Anesthesia Stop Time EXCISION BENIGN TUMOR OR CYST, MANDIBLE (WRVU 4.91) (Right: Face) Monika Talley MD 04/10/23 1553 04/10/23 1643 Events Date Time Event Comment 04/10/2023 1414 1553 AN Verify 1553 Start 1554 An Start Data 1558 An Induction 1601 An Intubation 1604 Anesthesia Ready 1612 Procedure Start 1637 Extubation/LMA Out 1642 an stop data 1643 Recovery or ICU Handoff Jackie ent care was transferred to the destination unit staff after review of the patient's medical history, current anesthetic/surgical status and plan, according to the Provider Handoff Checklist. 1643 Stop Meds Name Total Midazolam 2 mg fentaNYL 50 mcg IV Lidocaine 50 mg Propofol 380 mg Rocuronium 5 mg Ondansetron 8 mg Dexamethasone 8 mg propofol INF 155.16 mg succinylcholine 90 mg ceFAZolin (Ancef) 2 g in dextrose 5% 100 mL infusion 2 g lactated ringers infusion 800 mL * Agents Name O2 * Blood No blood administrations on file. Lines, Drains, and Airways Type Details Placement Removal PIV 04/10/23; 1407; [id number] catheter system; 20 gauge, 1 in length; cephalic vein (lateral side of arm), left; Anatomical Landmarks; US Not Used; Monse Elias RN; distraction, tolerated well, appears comfortable; 04/10/23; 18304/10/23 140 by Monse Elias RN 04/10/231831 by Marialuisa Landon RN ETT Mask Ventilation: Ea sy (1); ETT Type: Cuffed, Nasal; ETT Size: 6.5 mm; Mac Blade: 4; Notes: Asleep, Pre-O2; Attempts: 1; Laryngoscopy Grade: 1; ETT Placement Verified By: Auscultation, Capnometry; Inserted by: Sammie Ortiz MD; Removal Date: 04/10/23; Removal Time: 1637 04/10/23 1601 by Dilcia Ortiz MD 04/10/23 1637 by Dilcia Ortiz MD documented in this encounter Social History Tobacco Use Types Packs/Day Years Used Date Smoking Tobacco: Never Passive Smoke Exposure: Past Smokeless Tobacco: Former Comments:Chewing tobacco for the past 25-30 years. Chews on both sides Alcohol Use Standard Drinks/Week Comments Yes 4 (1 standard drink = 0.6 oz pur e alcohol) [facility] Inpatient Questions Answer Date Recorded Does [...] on file documented as of this encounter OR Notes * Anesthesia Postprocedure Evaluation - Monika Talley MD - 04/13/2023 9:28 AM EST Department of Anesthesiology Post-procedure Note Patient: Alhaji Allen Procedure Summary Date: 04/10/23 Room / Location: [address] Anesthesia Start: 1552 Anesthesia Stop: 1642 Procedure: EXCISION BENIGN TUMOR OR CYST, MANDIBLE (WRVU 4.91) (Right: Face) Diagnosis: Cyst of mandible (right mandibular cyst) Surgeons: Nimesh Aquino MD Responsible Provider: Monika Talley MD Anesthesia Type: general ASA Status: 2 All Anesthesia Providers: Anesthesiologist: Monika Talley MD Stoneworker: Dilcia Ortiz MD Vitals Value Taken Time BP 131/93 04/10/23 1715 Temp 36.2 ??C (97.2 ??F) 04/10/23 1641 Pulse 49 04/10/23 1808 Resp 16 04/10/23 1641 SpO2 98 % 04/10/23 1808 Pain Level 0 04/10/23 1845 Vitals shown include unfiled device data. Patient Location: PACU/[facility] Level of Consciousness: Awake and Alert Pain Management: Satisfactory Analgesia PONV: None Cardiovascular Status: At Baseline and Hemodynamically Stable Respiratory Status: At Baseline and Room Air Postoperative Fluid Status: Intravascular EUvolemia Possible Anesthetic Complications: NONE apparent at time of evaluation Final Primary Anesthesia Type: General (The anesthetic type performed was the same as planned.) Comments: Monika Talley MD * Anesthesia Preprocedure Evaluation - Monika Talley MD - 04/07/2023 4:38 PM EST Pre-Anesthesia Evaluation for: Alhaji geller 47 y.o. male. Procedure(s): EXCISION BENIGN TUMOR OR CYST, MANDIBLE (WRVU 4.91) There are no problems to display for this patient. History reviewed. No pertinent past medical history. History reviewed. No pertinent surgical history. Social History Tobacco Use ??? Smoking status: Never ??? Smokeless tobacco: Former ??? Tobacco comments: Chewing tobacco for the past 25-30 years. Chews on both sides Substance Use Topics ??? Alcohol use: Yes Alcohol/week: 2.0 standard drinks of alcohol Types: 2 Shots of liquor per week Social History Substance and Sexual Activity Drug Use Not Currently No Known Allergies Medications: MAR and/or home medications have been reviewed. Physical Exam: Preprocedure Vitals Current as of 04/07/23 1638 No BP, pulse, respiration, SpO2, or temperature recorded. Height: Weight: BMI: IBW: Airway Assessment: Mallampati: II TM distance: >3 FB Neck ROM: full Cardiovascular Assessment: Rhythm: regular Pulmonary Assessment: pulmonary exam normal Dental Assessment: - normal exam Misc Assessment: Patient is wearing No contact(s). IV access: Peripheral line Last Filed Perioperative Cognitive Screening None Anesthesia Plan: ASA 2 general, with a(n) intravenous induction Alhaji Allen 47 yo male presenting for surgical extraction of R mandibular cyst. Otherwise healthy. Appropriately NPO. No known allergies. Plan: GA with nasal ETT PIV Dilcia Ortiz MD Healthy, active 47 yo for right sided mandibular cyst excision. No history of anesthesia. Smokes MJa few times per month. No recent URIs. Appropriately NPO. No GERD. Plan is GA with nasal ETT, standard monitors and PIVx1. The patient was informed of the risks, benefits and alternatives of anesthesia. These risks included, but were not limited to, post-operative nausea and/or vomiting, pain, sore throat, dental/lip trauma, and other rare but serious complications such as major organ damage, awareness, severe allergicreactions, position-related nerve injuries, corneal abrasion/blindness and need blood transfusions.All questions were sought and answered. Consent was signed and placed in chart. Region - Other Informed Consent: Anesthetic plan and risks discussed with patient. Plan discussed with resident and attending. Anesthesia Screening documented in this encounter Plan of Treatment Upcoming Encounters Date Type Department Care Team (Late st Contact Info) Description 03/07/2024 3:00 PM EST Office Visit [place] [address] Nimesh Aquino MD [facility] [place] [address] documented as of this encounter Visit Diagnoses Not on filedocumented in this encounter Administered Medications Inactive Administered Medications - up to 3 most recent administrations Medication Order MAR Action Action Date Dose Rate Site ceFAZolin (Ancef) 2 g in dextrose 5% 100 mL infusion 2 g, Intravenous, TAIL BOARD WORKER TO O.R., 1 dose, On Mon04/10/23 at 0730, Administer over 30 Minutes, Indication for (Active or Suspected): Prophylaxis Given 04/10/2023 4:04 PM EST 2 g dexAMETHasone (Decadron) injection Intravenous, PRN, Starting on Mon04/10/23 at 1604, Until Mon04/10/23 at 1643, Anesthesia Intra-op, Routine Given 04/10/2023 4:04 PM EST 8 mg fentaNYL (pf) (50 mcg/mL) multi-dose injection Intravenous, PRN, Starting on Mon04/10/23 at 1634, Until Mon04/10/23 at 1643, Anesthesia Intra-op, Routine Given 04/10/2023 4:34 PM EST 50 mcg lactated ringers infusion 1,000 mL, at 100 mL/hr, Intravenous, CONTINUOUS, Starting on Mon04/10/23 at 1400, Until Mon04/10/23 at 1848, Day of Surgery (Day of Procedure) New Bag 04/10/2023 3:53 PM EST lidocaine (pf) (Xylocaine) (20 mg/mL) 2% injection syringe Intravenous, PRN, Starting on Mon04/10/23 at 1558, Until Mon04/10/23 at 1643, Anesthesia Intra-op, Routine Given 04/10/2023 3:58 PM EST 50 mg midazolam (pf) (Versed) (1 mg/mL) multi-dose injection Intravenous, PRN, Starting on Mon04/10/23 at 1550, Until Mon04/10/23 at 1643, Anesthesia Intra-op, Routine Given 04/10/2023 3:50 PM EST 2 mg ondansetron (pf) (Zofran) (2 mg/mL) injection Intravenous, PRN, Starting on Mon04/10/23 at 1631, Until Mon04/10/23 at 1643, Anesthesia Intra-op, Routine Given 04/10/2023 4:31 PM EST 8 mg propofoL (Diprivan) (10 mg/mL) infusion Intravenous, CONTINUOUS PRN, Starting on Mon04/10/23 at 1558, Until Mon04/10/23 at 1643, Anesthesia Intra-op, Routine New Bag 04/10/2023 3:58 PM EST 50 mcg/kg/min 25.86 mL/hr propofoL (Diprivan) 10 mg/mL bolus injection (Anesthesia) Intravenous, PRN, Starting on Mon04/10/23 at 1558, Until Mon04/10/23 at 1643, Anesthesia Intra-op Given 04/10/2023 4:30 PM EST 30 mg Given 04/10/2023 4:12 PM EST 50 mg Given 04/10/2023 4:03 PM EST 100 mg rocuronium (Zemuron) (10 mg/mL) multi-dose injection Intravenous, PRN, Starting on Mon04/10/23 at 1558, Until Mon04/10/23 at 1643, Anesthesia Intra-op, Routine Given 04/10/2023 3:58 PM EST 5 mg succinylcholine (Anectine;Quelicin) (20 mg/mL) injection Intravenous, PRN, Starting on Mon04/10/23 at 1558, Until Mon04/10/23 at 1643, Anesthesia Intra-op, Routine Given 04/10/2023 3:58 PM EST 90 mg documented in this encounter Care Teams Remote Sensing Technician Relationship Specialty Start Date End Date Vira Hilton MD [address] [place] [address] PCP - General Family Medicine 01/10/23 documented as of this encounter
--- OUTSIDE RECORDS SUMMARY | 2023-12-22 19:00 | XMS_ITS | Encounter Summary ---
[place] [address] Care Team Providers Care Truck Driver Heavy Name Role Phone Vira Hilton MD Primary Care Provider [phone] Encounter Details Date Type Department Care Team (Late st Contact Info) Description 06/15/2023 Orders Only [place] [phone] Nimesh Aquino MD [facility] [place] [address] Social History Tobacco Use Types Packs/Day Years [...] PM EST Office Visit [place] [phone] Nimesh Aquino MD [facility] [place] [address] documented as of this encounter Visit Diagnoses Not on filedocumented in this encounter Care Teams Truck Driver Heavy Relationship Specialty Start Date End Date Vira Hilton MD [employer] [address] [facility] [address] [place] [address] PCP - General Family Medicine 01/10/23 documented as of this encounter
--- OUTSIDE RECORDS SUMMARY | 2023-12-22 19:00 | XMS_ITS | Encounter Summary ---
[place] [address] Care Team Providers Care B Operator Name Role Phone Vira Hilton MD Primary Care Provider Encounter Details Date Type Department Care Team (Late st Contact Info) Description 04/28/2023 Telephone [place] [phone] Tammi Aguilar Social History Tobacco Use Types Packs/Day Years Used Date Smoking Tobacco: Never Passive Smoke Exposure: Past Smokeless Tobacco: Former Comments:Chewing tobacco for the past 25-30 years. Chews on both sides Alcohol Use Standard Drinks/Week Comments Yes 4 (1 standard drink = 0.6 oz pur e alcohol) [facility] Inpatient Questions Answer Date Recorded Does [...] encounter Miscellaneous Notes * Telephone Encounter - Tammi Aguilar - 04/28/2023 2:59 PM EST Pt left a VM at 2:38pm to inform us he has a funny taste coming from the surgical site Dr. Aquinoperformed surgery on. DOS was 04/10 for a right mandibular cyst. Message sent to my nurse health program manager Nova Hunter to contact pt for assessment and advise treatment. Next follow up in clinic is scheduled for 05/11/23. documented in this encounter Plan of Treatment Upcoming Encounters Date Type Department Care Team (Late st Contact Info) Description 03/07/2024 3:00 PM EST Office Visit [place] [address] Nimesh Aquino MD [facility] [place] [address] documented as of this encounter Visit Diagnoses Not on filedocumented in this encounter Care Teams B Operator Relationship Specialty Start Date End Date Vira Hilton MD [facility] [address] [place] [address] PCP - General Family Medicine 01/10/23 documented as of this encounter
--- OUTSIDE RECORDS SUMMARY | 2023-12-22 19:00 | XMS_ITS | Encounter Summary ---
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 Procedures CT Face wo Contrast Sg Fitzgerald PA [facility] [place] [address] [facility] [place] [address] Referral ID Status Reason Start Date Expiration Date V isits Requested Visits Authorized [id number] Closed Specialty Service Requested 01/06/2023 07/06/2024 1 1 Reason for Visit * Diagnostic Test (Routine) - Closed Specialty Diagnoses / Procedures Referred By Contac t Referred To Contact Radiology Diagnoses Radiolucent 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 Procedures CT Face wo Contrast Sg Fitzgerald PA [facility] [place] [address] [facility] [place] [address] Referral ID Status Reason Start Date Expiration Date V isits Requested Visits Authorized [id number] Closed Specialty Service Requested 01/06/2023 07/06/2024 1 1 Encounter Details Date Type Department Care Team (Latest Contact Info) Description 01/17/2023 2:32 PM EDT - 01/17/2023 11:59 PM EDT Hospital [place] [address] Nimesh Aquino MD [facility] [place] [address] Radiolucent 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 Discharge Disposition: Home Social History Tobacco [...] PM EST Office Visit [place] [phone] Nimesh qAuino MD [facility] [place] [address] documented as of this encounter Procedures Procedure Name Priority Date/Time Associated Diagnosis Comments CT FACE WO CONTRAST Routine 01/17/2023 2 :45 PM EDT Radiolucent 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 documented in this encounter Results * CT Face wo Contrast (01/17/2023 2:45 PM EDT) Anatomical Region Laterality Modality Head Computed Tomogra phy Impressions 01/17/2023 6:21 PM EDT Single, bilobed expansile unilocular cyst in the right mandible as described above is most suggestive of dentigerous cyst. There is associated thinning/demineralization of the lingual cortex. Thank you for letting us participate in the care of this patient. ??If you are a health care provider and have any questions regarding this report, please contact the number below. ??For patients who have questions please contact the health career counselor that requested your imaging first. ? Electronically signed by: Wiley Ni DO, [facility] ??([phone]), at 01/17/2023 6:21 PM Narrative 01/17/2023 6:21 PM EDT EXAMINATION: CT FACE WO CONTRAST CLINICAL HISTORY: large right mandible radiolucency as seen on panoramic xray TECHNIQUE: CT face performed without intravenous contrast administration. COMPARISON: None FINDINGS: There is an expansile, bilobed unilocular cyst identified within the posterior right mandibular body, extending into the base of the ramus anteriorly. There are areas of lingual/medial cortical thinning and demineralization (coronal image 48 and 42, series 601). Density of the cyst content by Hounsfield unit is greater than that of simple fluid. The cyst is positioned superiorly and medially to the mandibular canal and appears related to the crown of an unerupted, horizontally positioned right mandibular molar displaced inferiorly, along the floor of the cyst. The cyst surrounds, and may partially erode the roots of the second right maxillary molar. The third left maxillary molar is impacted. There are unerupted posterior maxillary molars. No evidence of significant inflammatory sinonasal or mastoid disease. No orbital or intracranial findings. No additional interval lesions identified. Procedure Note Wiley Ni DO - 01/17/2023 EXAMINATION: CT FACE WO CONTRAST CLINICAL HISTORY: large right mandible radiolucency as seen on panoramicxray TECHNIQUE: CT face performed without intravenous contrast administration. COMPARISON: None FINDINGS: There is an expansile, bilobed unilocular cyst identified within theposterior right mandibular body, extending into the base of the ramus anteriorly.There are areas of lingual/medial cortical thinning and demineralization(coronal image 48 and 42, series 601). Density of the cyst content by Hounsfieldunit is greater than that of simple fluid. The cyst is positioned superiorly and medially to the mandibular canal and appears related to the crown of an unerupted, horizontally positioned right mandibular molar displacedinferiorly, along the floor of the cyst. The cyst surrounds, and may partially erodethe roots of the second right maxillary molar. The third left maxillary molar is impacted. There are uneruptedposterior maxillary molars. No evidence of significant inflammatory sinonasal or mastoid disease. Noorbital or intracranial findings. No additional interval lesions identified. IMPRESSION Single, bilobed expansile unilocular cyst in the right mandible asdescribed above is most suggestive of dentigerous cyst. There is associated thinning/demineralization of the lingual cortex. Thank you for letting us participate in the care of this patient. If youare a health care provider and have any questions regarding this report,please contact the number below. For patients who have questions please contactthe health career counselor that requested your imaging first. 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
--- OUTSIDE RECORDS SUMMARY | 2023-12-22 19:00 | XMS_ITS | Encounter Summary ---
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 Procedures CT Face wo Contrast Sg Fitzgerald PA [facility] [place] [address] [facility] [place] [address] Referral ID Status Reason Start Date Expiration Date V isits Requested Visits Authorized [id number] Closed Specialty Service Requested 01/06/2023 07/06/2024 1 1 Encounter Details Date Type Department Care Team (Late st Contact Info) Description 01/06/2023 Orders Only [place] [address] Sg Fitzgerald PA [facility] [place] [address] Radiolucent 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 Social History Tobacco Use Types Packs/Day [...] PM EST Office Visit [place] [address] Nimesh Aquino MD [facility] [place] [place] [address] documented as of this encounter Results * CT Face wo [...] who have questions please contact the health family day carer that requested your imaging first. ? Narrative 01/17/2023 6:21 PM EDT EXAMINATION: CT [...] patients who have questions please contactthe health family day carer that requested your imaging first. 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
[2023-12-22 19:37] LABS: ALT 31 U/L (16-63); AST 26 U/L (15-37); Alkaline Phosphatase 52 U/L (46-116); Anion Gap 9.8 mmol/L (3-11); BUN 18 mg/dL (7-18); Bilirubin, Total 1.06 mg/dL (0.2-1.0); CO2 24.2 mmol/L (21.0-32.0); Calcium 9.5 mg/dL (8.5-10.1); Chloride 104 mmol/L (98-107); Estimated GFR 91.69 (mL/min/1.73m2); Glucose 121 mg/dL (74-106); Potassium 3.9 mmol/L (3.5-5.1); Sodium 138 mmol/L (136-145); Total Protein 7.5 g/dL (6.4-8.2)
[2023-12-22 19:52] LABS: Hemoglobin A1C 5.7 % (<5.7)
== END 2023-12-22 18:58 | disposition home or self-care (01) ==
LOC: NCHCN 18:57
PROVIDERS: PCP Family Medicine; Visit Provider Family Medicine
DX: E66.9 Obesity, unspecified (principal); R73.03 Prediabetes
CPT/HCPCS: 80053; 83036

== ENCOUNTER 2024-04-05 09:04 | Day surgery (SDC) | payer OTHER, SELFPAY ==
--- NOTE | 2024-04-04 17:18 | W.ANESPRE ---
General Info Date of Service Date Performed: 04/05/24 Height: 5 ft 7.5 in Weight: 91.399 kg Body Mass Index (BMI): 31.1 Surgical Procedure: Operation Date: 04/05/24 09:50 Proposed Procedure Side Surgeon riccardo Becker, DO Meds Allergies and Home Medications Allergies Allergy/AdvReac Type Severity Reaction Status Date / Time No Known Allergies Allergy Verified 04/05/24 09:23 Home Medication ?Medication ?Instructions ?Recorded ibuprofen 200 mg capsule 600 mg PO Q6H PRN 03/07/24 Current Visit Medications: Current Medications Generic Name Dose Route Start Last Admin Trade Name Freq PRN Reason Stop Dose Admin Ringer's Solution 1,000 mls @ 80 mls/hr 04/05/24 06:00 IV 04/05/24 23:59 INFUSION ALYX IV Miscellaneous Supplies 1 each 04/05/24 06:00 Iv Access IV 04/05/24 23:59 DIRECTED ALYX Sodium Chloride 0 ml 04/05/24 06:00 Normal Saline Flush 10 Ml Syr IV 04/05/24 23:59 PRN PRN Sodium Chloride 0 ml 04/05/24 06:00 Normal Saline 10 Ml Vial IJ 04/05/24 23:59 DIRECTED PRN Sterile Water 0 ml 04/05/24 06:00 Water,Injection,Sterile 10 Ml Vial IJ 04/05/24 23:59 DIRECTED PRN PFSH Active Problems Active Problems: Problem Status Onset Code Irritability and anger Acute R45.4 Prediabetes Acute R73.03 Obesity Chronic E66.9 Screening for malignant neoplasm of colon Acute Z12.11 Surgical History Surgical History History of excision of lesion (~04/11/23) jaw bone Tobacco Smoking/Tobacco Use Status: Never Alcohol Alcohol Intake: current Alcohol intake frequency: a few times a week Substance Use Substance use: Never Substance use type: does not use Vital Signs and Lab Results Vital Signs Most Recent Vital Signs in EMR: Temp Pulse Resp BP Pulse Ox 36.2 C L 48 L 16 110/75 97 04/05/24 09:20 04/05/24 09:20 04/05/24 09:20 04/05/24 09:20 04/05/24 09:20 Lab Results Blood Type / Crossmatch: No Data to Display Complete Blood Count: No Data to Display Complete Metabolic Panel: No Data to Display Liver Function Panel: No Data to Display Coagulation Panel: No Data to Display Cardiac Panel: No Data to Display Arterial Blood Gas: No Data to Display Venous Blood Gas: No Data to Display Pancreas Panel: No Data to Display Thyroid Panel: No Data to Display Infectious Disease: No Data to Display Blood Cultures: No Data to Display Toxicology Panel: No Data to Display Anesthesia Assessment and Plan Anesthesia History Personal History: No History of Anesthesia Complications Family History: No Family History of Anesthesia Complications Exercise Tolerance Exercise Tolerance: Metabolic Equivalents>4 Cardiac & Pulmonary Exam Cardiac Exam: Normal S1/S2 Heart Sounds Pulmonary Exam: Clear Bilateral Breath Sounds Implantable Cardiac Device Does patient have a Pacemaker or an ICD?: No Airway Exam Known Difficult Airway: No Mallampati Class: 4 Mouth Opening: Normal (> 3cm) Thyromental Distance: Greater than 3 cm Neck Range of Motion: Full ROM Neck Circumference: Normal Teeth Condition: Normal Dentition ASA Classification ASA Score: ASA 2 Emergency Case?: No NPO Status NPO Status: NPO Clears >2 hours, Solids >8 hours Anesthesia Plan Resuscitation Status: Full Code Anesthesia Technique: General Anesthesia Airway Planned: Natural Airway Monitors Used: Standard Monitors Preoperative Comments:: 48 yo male for colo. Sig PMHx: PreDM, never smoker, occ EtOh. Denies major. Denies GERD.
--- NOTE | 2024-04-04 21:21 | COLE_ITS ---
Date of service: 04/05/24 Time of Service: 10:30 Colonoscopy Report Date of procedure: 04/05/24 Pre-op diagnosis general: crc screening Post-op diagnosis procedure note: other (Polyps and diverticula) Surgeon: Domenica Becker Anesthesia Type: General:No Airway Estimated blood loss (mL): 2 Pathology: other Complications: None Disposition: same day Prep: Miralax/Dulcolax Retraction Time: 18 Procedure Description: After informed consent was obtained, explaining risks of the procedure, including but not limits to: bleeding, infections, complications of anesthesia, perforations (which may require antibiotics and /or surgery and stay in the hospital), and abdominal pain/cramping. The patient was taken to the procedure room and placed in a left decubitous position. Monitors were applied and a time out was done. The patients name, date of , procedure, allergies to medications and metal in their body was reviewed. The patient was then sedated. Once sedated and comfortable a rectal exam was done. External exam was normal. Internal exam revealed a normal sphincter tone and no palpable masses. The prostate . The previously lubricated Olympus scope was then introduced (see RN notes for scope number) and retrofelexed. No internal hemorrhoids were identified. The scope was then advanced to the cecum without difficulty. The TI and appendiceal orifice were identified. The scope was then slowly retracted over 18 minutes back into the rectum. Polyps: A pedunculated, .75cm polyp was found at rectum x 2. Both of these polyps were removed with a hot forcep. All of the specimen was retrieved. This will be sent to pathology. There is no bleeding noted from the polypectomy site. Diverticula: pt had a moderate amount of small mouthed diverticula in the sigmoid colon. There were no signs of active bleeding or infection. The mucosa is pink and healthy w/ a normal vascular pattern. The scope was removed, and the patient was woken up and taken back to Same day surgery in stable condition. Unfortunately the patient did have quite a bit of gastric secretions. There is no evidence of any immediate aspiration during the procedure. Post procedurally he was coughing quite a bit and did have a sore throat and some desaturation. Patient was sent home with incentive spirometry and instructions on warning signs and when to return to the hospital. Follow up: The patient should follow up in 3-5 years, unless they develop changes in bowel habits or other new gastrointestinal complaints. [place] Bowel Prep [place] Bowel Prep Right Colon: 3 Left Colon: 3 Transverse Colon: 3 Total Score: 9
--- NOTE | 2024-04-04 21:22 | PDOC.DSDIS_ITS ---
Date of service: 04/05/24 Discharge Plan Disposition Patient Disposition: Home Condition: Good Discharge Details Reason For Visit: CRC screening Attending Provider: Domenica Becker Primary Care Provider: Vira Hilton Home Meds and New Rx's Prescriptions: Continued ibuprofen 200 mg capsule 600 mg PO Q6H PRN Discontinued polyethylene glycol 3350 17 gram/dose powder 238 g PO ONCE Qty: 238 0RF Rx Instructions: take per colonoscopy instructions bisacodyl [Dulcolax (bisacodyl)] 5 mg tablet,delayed release (DR/EC) 5 mg PO ONCE Qty: 4 0RF Rx Instructions: take per colonoscopy instructions Discharge Instructions Instructions: Aspiration Pneumonia (DC) Additional Instructions: DSU Colonoscopy Post- Op Instructions Instructions for Everyone who is given Anesthesia: For your safety, please do the following for the next twenty-four (24) hours: *Do Not operate a motor vehicle (car, truck, motorcycle, etc.) *Do Not drink alcoholic beverages or use any recreational drugs for the first 24 hours or while taking pain medications. The medications in your body may have a reaction that can be dangerous. *Do Not make any important decisions or sign any important papers. Findings: Diverticula-make sure you are not straining to move your bowels. If you find you are having problems with constipation/straining, then it is recommended you start a fiber product such as Metamucil. Colon polyps Follow up: My office will send a letter in 3 to 4 weeks time with the results of the pathology and when we want you to repeat your colonoscopy, most likely in 3 to 5 years time. 1. No lifting over 20 pounds or strenuous activity for the first 24 hours after your procedure. After 24 hours there are no restrictions on your activity but you may feel fatigued for a few days. 2. After you arrive home you may have a light meal and return to your normal diet as you can tolerate it without feeling sick to your stomach. 3. You may have a bloated, gaseous feeling in your belly (abdomen) after a colonoscopy. Passing gas and belching will help. Walking or lying down on your left side with your knees flexed may relieve the discomfort. Call the office at [phone] (Office) or [phone] (Hospital) right away if you notice any of the following: a.Vomiting of blood or ?coffee ground stools?. b.Rectal bleeding 1Tbsp, blood clots or continuous bleeding. c.Severe belly (abdominal) pain. d.A hard distended belly (abdomen) and an inability to pass gas. 4. Please don?t expect to have a normal BM (bowel movement) for 2-3 days after your procedure. 5. If there are questions regarding the findings of your procedure, please contact your doctor 6. If you are unable to contact your doctor with a problem, contact the hospital at [phone]. 7. Continue all your regular medications unless directed otherwise. I understand the above instructions and have no questions. Signature of Patient or Adult Escort Name of Responsible Adult Escort Signature of Nurse Date/Time Stand Alone Forms: Colonoscopy Post Instructions, Luz Marina Dexter (DSU) Activity:: seeabove Diet:: seeabove Discharge Orders Discharge Orders: Discharge Order (Routine); Ordered 04/05/24 Ordered By: Domenica Becker DS: Diagnosis Discharge Diagnosis (1) Screening for malignant neoplasm of colon performed: Status: Acute Asessment and Plan: The patient is seen and examined after their colonoscopy.? The patient has been able to pass gas.? They are not having abdominal pain.? They have been able to tolerate liquids and a snack.? They do not have any nausea or vomiting.? They are not having any chest pain or shortness of breath.??? They are not having any rectal bleeding. Their vital signs have been stable-see nursing notes. We discussed findings during their colonoscopy, and any biopsies that were done/polyps that were removed. The patient will be sent a letter with any biopsy results, and when to repeat the colonoscopy.-see discharge instructions. Patient was given explicit instructions to follow-up regarding colonoscopy-refer to discharge instructions.? We reviewed resumption of medications. Patient verbalized understanding and discharged in stable and satisfactory condition- See nursing notes. (2) Diverticula of colon: Status: Acute (3) Adenomatous polyps: Status: Acute
[2024-04-05 09:20] VITALS: BP 110/75; PULSE 48; RESP 16; TEMP 36.2; O2SAT 97
[2024-04-05 09:29] VITALS: BMI 31.1
[2024-04-05] MEDS: Normal Saline Flush 10 ML SYR IV (09:34)
--- NOTE | 2024-04-05 10:22 | BOWEL_PTH ---
PATIENT: Alhaji Allen LOC: [facility] U#:[id number] AGE/SX: 48/M ROOM: RE04/05/[address]: Domenica Becker : 1975 BED: DIS: 04/05/2024 SPEC #: [id number] RECD: 04/05/24 13:14 STATUS: ANGEL REQ #: [id number] AISHWARYA: 04/05/24 10:[address]: Domenica Becker DEPT: Surgical Specimen RECD BY: Sindy Mccracken ENTERED: 04/05/24 13:14 SP TYPE: Bowel OTHR DR: Vira Hilton Tissues: 1 - BIOPSY BOWEL 2 - BIOPSY BOWEL Procedures: GROSS AND MICRO LEVEL 4 Comments: [id number]
[2024-04-05 10:36] VITALS: BP 106/77; PULSE 59; TEMP 36; O2SAT 87
--- NOTE | 2024-04-05 11:01 | W.ANESPOSTOP ---
Postoperative Evaluation Date, Time and Location Date Performed: 04/05/24 Time Performed: 11:01 Patient Location: Day Surgery Unit Vital Signs Most Recent Imported Vital Signs: Most Recent Vital Signs Temp Pulse Resp BP Pulse Ox 36 C L 59 L 16 106/77 87 L 04/05/24 10:36 04/05/24 10:36 04/05/24 09:20 04/05/24 10:36 04/05/24 10:36 Pain Score Most Recent Pain Score: Most Recent Pain Score Pain Level 0 04/05/24 10:36 Assessment Mental Status: Awake (Alert & Oriented to Patient Baseline) Airway and Respiratory Function: Other (encouraged to use IS and CDB. ) Cardiovascular Function: Hemodynamically Stable Hydration Status: Adequately Hydrated Nausea & Vomiting: No Nausea or Vomiting Pain: Pt. Denies Any Pain Peripheral Nerve Block: Patient did not receive a nerve block Postoperative Comments:: Discussed with him and his about aspiration/laryngospasm. encouraged to CDB and use the IS. Discussed that if he is safe to get D/Cd home to return to the ER with any concerns, fernandez respiratory difficulty, increased coughing, fever, shaking.
[2024-04-05 11:06] VITALS: BP 115/83; PULSE 49; RESP 14; TEMP 36.2; O2SAT 98
== END 2024-04-05 12:16 | disposition home or self-care (01) ==
LOC: SUR 09:04
PROVIDERS: PCP Family Medicine; Visit Provider Surgery
PROC: 0DJD8ZZ Inspection of Lower Intestinal Tract, Via Natural or Artificial Opening Endoscopic (ICD-10-PCS; CPT 45378; principal; 2024-04-05 09:45)
DX: Z12.11 Encounter for screening for malignant neoplasm of colon (principal); K57.30 Diverticulosis of large intestine without perforation or abscess without bleeding; R73.03 Prediabetes; K62.1 Rectal polyp
CPT/HCPCS: 45385; 88305; J2704

== ENCOUNTER 2024-04-05 19:09 | Emergency (ER) | payer OTHER, SELFPAY ==
[2024-04-05 19:12] VITALS: BP 106/70; PULSE 91; RESP 18; TEMP 37.3; O2SAT 95
--- NOTE | 2024-04-05 19:15 | DI.RAD_ITS ---
Exam(s) XR CHEST 2V PA LATERAL EXAM: XR CHEST 2V PA LATERAL CLINICAL HISTORY: possible aspiration TECHNIQUE: 2D digital imaging was performed. Two views. COMPARISON: No exams were available for comparison FINDINGS: HEART: Normal size. Aorta: Not dilated. PULMONARY VASCULATURE: Normal. MEDIASTINUM: Unremarkable. LUNGS: Clear. PLEURAL SPACE: No pleural effusion or pneumothorax. BONE:Unremarkable for age. SOFT TISSUES: Unremarkable. IMPRESSION: No acute abnormality. DATA REPOSITORY: RADIATION DOSE DELIVERED:
[2024-04-05 19:31] LABS: Abs Immature Grans 0.05 10^3/uL (0.0-0.06); Absolute Basophil Count 0.03 10^3/uL (0.0-0.2); Absolute Eosinophil Count 0.05 10^3/uL (0.0-0.7); Absolute Monocyte Count 0.71 10^3/uL (0.1-0.8); Basophils % 0.2 %; Eosinophils % 0.4 %; HCT 44.4 % (40.0-50.0); HGB 15.4 g/dL (13.5-17.5); Immature Grans % 0.4 %; Lymphocytes % 11.4 %; MCH 30.7 pg (27.0-33.0); MCHC 34.7 % (32.0-36.0); MCV 88 fL (80-95); MPV 8.8 fL (8.0-11.0); Monocytes % 5.5 %; Neutrophils % 82.1 %; Platelet Count 237 10^3/uL (130-400); RBC 5.02 10^6/uL (4.36-5.78); RDW 12.5 % (11.8-14.1); RDW-SD 40.8 fL; WBC 12.94 10^3/uL (4.4-10.8)
[2024-04-05 19:33] LABS: Absolute Lymphocyte Count 1.48 10^3/uL (1.2-3.4); Absolute Neutrophil Count 10.62 10^3/uL (1.2-6.7)
--- NOTE | 2024-04-05 19:33 | ED.GENADUL_ITS ---
Discharge Plan Disposition Patient Disposition: Home Condition: Good Discharge Details Clinical Impression: Aspiration pneumonitis after procedure Primary Care Provider: Vira Hilton ED Provider: Lita Chan Home Meds and New Rx's Prescriptions: Continued ibuprofen 200 mg capsule 600 mg PO Q6H PRN Discharge Instructions Instructions: Pneumonitis (DC) Additional Instructions: You may have inflammation in your lungs after aspiration during your colonoscopy; this can cause cough, chest pain, and low-grade fevers. This should improve within 48 hours. After 48 hours this can sometimes (but not always) turn into an aspiration pneumonia. If your symptoms are persisting after 48 hours or if you develop a temperature higher than 100.4F you should seek medical attention. Call your primary care doctor to schedule an appointment for within the next 72 hours to followup on your visit here. Return to the emergency department for new or worsening symptoms including chest pain, difficulty breathing, temp higher than 100.4F, or if you have any other concerns. Referrals: Vira Hilton MD [Primary Care Provider] - [facility] General Mode of arrival: ambulatory . Date/Time Provider Initiated Documentation: 04/05/24 19:18 . Limitations to Documentation: no limitations . Information obtained by: patient and old records reviewed (post-anesthesia evaluation note today) . HPI Narrative: 48yo previously healthy male presenting for chills and tempt of 99.9F. Had a colonoscopy earlier today with concern than he may have aspirated during the procedure. After returning home, this afternoon he began to have chills, checked his temp and it was 99.9F. Mild cough earlier in the day, improving. Otherwise doing well with no shortness of breath, chest pain, pleuritic pain, or other concerns. Related Data Home Medications ?Medication ?Instructions ?Recorded ?Confirmed ibuprofen 200 mg capsule 600 mg PO Q6H PRN 03/07/24 04/05/24 Allergies Allergy/AdvReac Type Severity Reaction Status Date / Time No Known Allergies Allergy Verified 04/05/24 19:16 General Stated Complaint: RespSymp SHIVA: 3 Review of Systems Narrative: see HPI Exam Narrative Exam Narrative: General: Alert, well appearing, well nourished, in no acute distress. Head: Normocephalic, atraumatic Neck: Trachea midline, ?Neck supple. ENT: ?MMM.? No oropharygeal lesions or exudate. Cardiac: ?RRR, no murmurs appreciated Resp: No respiratory distress. CTAB. Abd: ?Non-distended Extremities: ?No deformities.? No peripheral edema. Neurologic: GCS 15. ? Moves all extremities freely against gravity Course Vital Signs Vital signs: Vital Signs Temperature 37.3 C 04/05/24 19:12 Pulse 91 H 04/05/24 19:12 Respiratory Rate 18 04/05/24 19:12 Blood Pressure 106/70 04/05/24 19:12 Pulse Oximetry 95 04/05/24 19:12 Temperature 37.3 C 04/05/24 19:12 Temperature Source Oral 04/05/24 19:12 Pulse 91 H 04/05/24 19:12 Respiratory Rate 18 04/05/24 19:12 Respiratory Effort Normal, Non-Labored 04/05/24 19:18 Respiratory Depth Normal 04/05/24 19:18 Blood Pressure 106/70 04/05/24 19:12 Blood Pressure Position Sitting 04/05/24 19:12 Pulse Oximetry 95 04/05/24 19:12 Oxygen Delivery Method Room Air 04/05/24 19:12 Oxygen Flow Rate 0 04/05/24 19:12 Pain Level 1 04/05/24 19:12 Medical Decision Making 48yo previously healthy male presenting for chills and tempt of 99.9F. Had a colonoscopy earlier today with concern than he may have aspirated during the procedure. After returning home, this afternoon he began to have chills, chec ked his temp and it was 99.9F. Mild cough earlier in the day, improving. Otherwise doing well with no shortness of breath, chest pain, pleuritic pain, or other concerns. Vital signs reassuring on arrival. May be aspiration pneumonitis, would not aspect pneumonia this soon. Will get labs and CXR. Would not do antibiotics at this time. Low suspion for sepsis. Labs reviewed as below, CBC with mild leukoctysois (nonspecific), CMP with no actionable abnormalities. CXR independently reviewed, no pneumonia or sequela of aspiration on my view, agree with radiology read below. On reassessment he remains well appearing with reassuring vital signs. Counseled patient regarding potential progression of symptoms/disease with aspiration. Discharged home; discharge instructions and return precautions were reviewed with patient who verbalized understanding. All questions were answered and he is in full agreement with the plan. Medical Records Medical records reviewed: Yes I reviewed the patient's medical records. Imaging Data Radiologic Study: Imaging: X-Ray Radiologist's impression: IMPRESSION: No acute findings. Lab Data Lab results reviewed: Yes I reviewed the patient's lab results. Labs: Laboratory Tests Range/Units 04/05/24 19:25 WBC (4.4-10.8) 10^3/uL 12.94 H RBC (4.36-5.78) 10^6/uL 5.02 Hgb (13.5-17.5) g/dL 15.4 Hct (40.0-50.0) % 44.4 MCV (80-95) fL 88 MCH (27.0-33.0) pg 30.7 MCHC (32.0-36.0) % 34.7 RDW (11.8-14.1) % 12.5 Plt Count (130-400) 10^3/uL 237 MPV (8.0-11.0) fL 8.8 Immature Gran % % 0.4 Neutrophils % % 82.1 Lymphocytes % % 11.4 Monocytes % % 5.5 Eosinophils % % 0.4 Basophils % % 0.2 Nucleated RBC % (0.0-0.3) % 0.0 Absolute Neutrophils (1.2-6.7) 10^3/uL 10.62 H Absolute Lymphocytes (1.2-3.4) 10^3/uL 1.48 Absolute Monocytes (0.1-0.8) 10^3/uL 0.71 Absolute Eosinophils (0.0-0.7) 10^3/uL 0.05 Absolute Basophils (0.0-0.2) 10^3/uL 0.03 Sodium (136-145) mmol/L 140 Potassium (3.5-5.1) mmol/L 4.1 Chloride (98-107) mmol/L 105 Carbon Dioxide (21.0-32.0) mmol/L 23.9 Anion Gap (3-11) mmol/L 11.1 H BUN (7-18) mg/dL 17 Creatinine (0.70-1.30) mg/dL 1.1 Est GFR (CKD-EPI 2020) (mL/min/1.73m2) 81.78 Glucose (74-106) mg/dL 127 H Calcium (8.5-10.1) mg/dL 8.9 Total Bilirubin (0.2-1.0) mg/dL 0.93 AST (15-37) U/L 17 ALT (16-63) U/L 37 Alkaline Phosphatase (46-116) U/L 58 Total Protein (6.4-8.2) g/dL 6.8 Albumin (3.4-5.0) g/dL 3.7 Quality:SDOH Health Related Social Needs: No Data to Display PFSH All Active Problems (Updated 04/05/24 @ 20:12 by Lita Chan MD) Aspiration pneumonitis after procedure (Acute) Adenomatous polyps (Acute) Diverticula of colon (Acute) Screening for malignant neoplasm of colon performed (Acute) Irritability and anger (Acute) Prediabetes (Acute) Obesity (Chronic) Screening for malignant neoplasm of colon (Acute) Surgical History History of excision of lesion (~04/11/23) jaw bone Social History Smoking/Tobacco Use Status: Current every day Tobacco Type: smokeless tobacco Smoking risk assessment performed?: Yes Alcohol Intake: current Alcohol Intake frequency: a few times a week Drug use: Never Substance use type: does not use Housing: house Do you feel safe at home: Yes Do you feel safe in your relationship?: Yes
[2024-04-05 19:46] LABS: ALT 37 U/L (16-63); AST 17 U/L (15-37); Albumin 3.7 g/dL (3.4-5.0); Alkaline Phosphatase 58 U/L (46-116); Anion Gap 11.1 mmol/L (3-11); BUN 17 mg/dL (7-18); Bilirubin, Total 0.93 mg/dL (0.2-1.0); CO2 23.9 mmol/L (21.0-32.0); CREATININE 1.1 mg/dL (0.70-1.30); Calcium 8.9 mg/dL (8.5-10.1); Chloride 105 mmol/L (98-107); Estimated GFR 81.78 (mL/min/1.73m2); Glucose 127 mg/dL (74-106); Potassium 4.1 mmol/L (3.5-5.1); Sodium 140 mmol/L (136-145); Total Protein 6.8 g/dL (6.4-8.2)
--- NOTE | 2024-04-05 20:15 | DI.VRAD_ITS ---
PROCEDURE INFORMATION: Exam: XR Chest Exam date and time: 04/05/2024 7:36 PM Age: 48 years old Clinical indication: Other: Possible aspiration TECHNIQUE: Imaging protocol: Radiologic exam of the chest. Views: 2 views. COMPARISON: No relevant prior studies available. FINDINGS: Lungs: Unremarkable. No consolidation. Pleural spaces: Unremarkable. No pleural effusion. No pneumothorax. Heart/Mediastinum: Unremarkable. No cardiomegaly. Bones/joints: Unremarkable. IMPRESSION: No acute findings. Dictated and Authenticated by: Loc Gates MD. Ordering:QUOC London MD
[2024-04-05] MEDS: Acetaminophen 325 MG TAB 650 MG PO (20:16)
[2024-04-05 20:35] VITALS: BP 111/73; PULSE 72; RESP 18; O2SAT 98
== END 2024-04-05 20:36 | disposition home or self-care (01) ==
PROVIDERS: Emergency Provider Student in an Organized Health Care Education/Training Program; PCP Family Medicine
DX: J69.0 Pneumonitis due to inhalation of food and vomit (principal); Y84.9 Medical procedure, unspecified as the cause of abnormal reaction of the patient, or of later complication, without mention of misadventure at the time of the procedure; R05.9 Cough, unspecified; R50.9 Fever, unspecified
CPT/HCPCS: 36415; 80053; 99283; 71046; 85025